=== PATIENT | female | born 1950 | race Caucasian/White ===

== ENCOUNTER → 2020-11-04 14:46 | Outpatient (POV) | payer MEDICARE, SELFPAY ==
[2020-11-04 16:10] VITALS: BP 120/71; PULSE 72; RESP 18; O2SAT 96; BMI 34.2
--- NOTE | 2020-11-04 16:40 | HMH.PMCON ---
Assessment and Plan (1) Right hip pain Status: Chronic Category: Medical Code(s): M25.551 - Pain in right hip (2) Low back pain Status: Chronic Category: Medical Code(s): M54.5 - Low back pain (3) Degenerative joint disease (DJD) of lumbar spine Status: Chronic Category: Medical Code(s): M47.816 - Spondylosis without myelopathy or radiculopathy, lumbar region (4) Lumbar radiculopathy Status: Chronic Category: Medical Code(s): M54.16 - Radiculopathy, lumbar region - Assessment and plan all Dx Assessment and Plan for all problems:: Patient was referred to us for possible work-up for intrathecal therapy. We did discuss her symptoms. She has undergone conservative therapies of physical therapy for more than 6 weeks and continued home stretching. She has also tried anti-inflammatories in the past along with continued home stretching and ice and heat therapies. Nothing has been beneficial for her pain at this time. She has been worked up by orthopedics providers as well as neurosurgeons. Patient says that she feels she is being disregarded and sent back and forth with no resolution. As result, she was referred to us. She is in pain management and does take oral medications. She understands she would need to wean on these medications before any type of trial for intrathecal therapy. We did discuss spinal cord stimulation which may also be an option for her, however, patient says she feels the pump would be a better option for her. Given she has tried and failed all other conservative therapies. We will send the patient back to Dr. Fernandes for psychological evaluation to see if she is an appropriate candidate for intrathecal therapy versus spinal cord stimulation. We will see her back after her trial to discuss a further plan of care. If she is considered an appropriate candidate. We will schedule her for a trial for possible intrathecal therapy. She is not on anticoagulation therapy. She is willing to hold her Gas[place] for the trial if she does have an appropriate psychological evaluation. Patient has been instructed to contact the clinic with any concerns before the next appointment. Dr. Silva has reviewed this note and agrees with this plan of care. This note was dictated using voice recognition software and make contain errors or omissions. HPI - Data of Consult Patient: new to practice Consult date: 11/04/20 Requesting Physician: Maria G Horner APRN Primary Care Provider: Referral Provider, MD - Consult Narrative Reason for consult: Low back pain, right hip pain History of present illness: Ms. Bennett is a 70 year old female who was referred to us today by [facility]. The patient is here today for complaints of chronic right hip pain. She has a history of right total hip arthroplasty. Patient says she has continued to have significant pain in her right hip and right lateral thigh since her surgery. She is seeing multiple orthopedic providers as well as neurosurgery. She has been worked up for both her low back pain as well as her hip pain. She is having low back pain that radiates into her mid back. She is having weakness in her lower extremities and is having pain that is excruciating when she is unable to stand or walk until she takes pain medication. She denies any recent injuries. She did undergo injective therapy to both her hip and her lumbar spine. She says that the lumbar epidural steroid injections did give her significant relief for short-term. She also reports that she had relief in her right lower extremity hip following the epidural steroid injections. Pain does return shortly after 3 days to a week. Says she is unsure if her pain is coming from her low back or her hip does not feel the medication is giving her significant relief. She was sent to us for possible work-up for intrathecal therapy. did recommend he has this well. She does see Dr. Fernandes for medicat
== END ==
PROVIDERS: Visit Provider Clinical Nurse Specialist Family Health
DX: M25.551 Pain in right hip (principal); M54.5 Low back pain; M47.896 Other spondylosis, lumbar region; M54.16 Radiculopathy, lumbar region
CPT/HCPCS: 99202; G0463

== ENCOUNTER 2020-12-24 08:07 | Day surgery (SDC) | payer MEDICARE, SELFPAY ==
[2020-12-24] VITALS (7 sets, daily range): BP systolic 112–151; BP diastolic 61–88; PULSE 69–83; RESP 18–20; TEMP 36.4; O2SAT 96–98; BMI 33.8
--- NOTE | 2020-12-24 09:44 | HMH.PMPROC ---
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 She has had 3 previous back surgeries. She is also had epidural steroid injections which have not lasted. She is also on hydrocodone and gabapentin which is giving her some pain relief however she still has significant pain. She has failed all previous conservative therapy. She has had a successful psychological evaluation. She presents for intrathecal pump trial today. Procedure Details:: Pain pump trial Informed consent was obtained and the risk and benefits of the procedure was explained to the patient. The patient was taken to the procedure room and placed prone on the procedure table. Patient was prepped and draped in sterile fashion. C-arm fluoroscopy was used to view the lumbar spine. The skin and subcutaneous tissues were anesthetized using lidocaine. I placed a 18-gauge spinal needle into the L4-5 interspace and advanced until clear CSF was obtained. After this intrathecal catheter was inserted and advanced very easily to the L1 vertebral body. The needle was withdrawn. We were able to freely withdraw clear CSF through the catheter. We then injected intrathecal fentanyl single shot bolus of 25 mcg followed by saline and followed by the previous CSF that was withdrawn. The needle and catheter were then removed and a Band-Aid was placed. Patient tolerated the procedure well with no complications. We reevaluated the patient after 30 minutes to 1 hour. She was also reassessed by physical therapy. Plan and Disposition:: Patient did very well she was 80 to 90% better. She did have some slight itching. She is much more functional. She was able to stand up straighter. We will plan on permanent placement of intrathecal pain pump on January 12. We will plan on intrathecal morphine 5 mg/mL to start at 0.25 mg/day. Catheter tip will be at the T12 vertebral body
--- NOTE | 2020-12-24 09:50 | PC.NURSE ---
0850-Physical therapist at bedside 0910-pt returned to bay, accompanied by nursing staff. VSS, rates pain 3 on scale of 0-10. dressing to low back c/d/i. pt given soda per requested. without any other needs or concerns at this time 0925-pt resting in chair. tolerating PO intake. VSS, rates pain 1 on scale 0-10. dressing to low back c/d/i. pt with out any needs or concerns at this time 0935-MD at bedside 0940-pt resting in chair. VSS, denies pain. dressing c/d/i. pt without any needs or concerns at this time. 0944-pt ambulated to nursing station with walker. gait steady. denies pain. requested benadryl for itching. 0950-pt medicated with benadryl per prn order. pt without any needs or concerns at this time.
--- NOTE | 2020-12-24 12:48 | PC.NURSE ---
1010-physical therapist at bedside 1016-VSS, pt denies pain. pt discharged.
== END 2020-12-24 10:20 | disposition home or self-care (01) ==
LOC: SC.PAINP 08:09
PROVIDERS: PCP Internal Medicine; Visit Provider Anesthesiology
DX: M96.1 Postlaminectomy syndrome, not elsewhere classified (principal); M54.16 Radiculopathy, lumbar region
CPT/HCPCS: 62350; 96365

== ENCOUNTER 2021-01-05 07:41 | Day surgery (SDC) | payer MEDICARE, SELFPAY ==
[2021-01-03 15:06] VITALS: BMI 34.7
[2021-01-05] VITALS (7 sets, daily range): BP systolic 101–149; BP diastolic 53–80; PULSE 67–87; RESP 18; TEMP 36.1–36.7; O2SAT 94–96
[2021-01-05 09:01] LABS: Basophils # 0.1 K/mm3 (0-0.2); Basophils % 1.1 % (0.1-2.0); Eosinophils # 0.2 K/mm3 (0.0-0.4); Eosinophils % 1.8 % (0.1-12.0); Hematocrit 49.6 % (37.0-47.0); Hemoglobin 15.8 g/dL (12.2-16.2); Lymphocytes # 1.8 K/mm3 (0.7-4.5); Lymphocytes % 19.9 % (10-50); Mean Corpuscular HGB Conc 31.8 g/dL (31.8-35.4); Mean Corpuscular Hemoglobin 28.7 pg (27.0-31.2); Mean Corpuscular Volume 90.3 fl (81-99); Mean Platelet Volume 8.6 fl (7.4-10.4); Monocytes # 0.5 K/mm3 (0.1-1.0); Monocytes % 5.6 % (1.7-9.3); Neutrophils # 6.3 K/mm3 (1.8-7.8); Neutrophils % 71.5 % (37.0-80.0); Platelet Count 178 K/mm3 (142-424); Red Cell Distribution Width 14.2 % (11.5-17.5); White Blood Count 8.8 K/mm3 (4.8-10.8)
[2021-01-05 09:04] LABS: Anion Gap 18.5 mEq/L (5-15); Blood Urea Nitrogen 19 mg/dl (7-17); Calcium 9.9 mg/dl (8.4-10.2); Carbon Dioxide 27 mmol/L (22.0-30.0); Chloride 101 mmol/L (98-107); Creatinine Clearance Estimated 71 mL/min (50-200); Estimated Glomerular Filt Rate 62 ml/min (>60); GFR (African American) 75 ML/MIN (>60); Glucose 136 mg/dl (74-100); Potassium 4.5 mmoL/L (3.5-5.1); Sodium 142 mmol/L (136-145)
[2021-01-05 09:23] LABS: Amphetamine/Metha Screen,Urine Negative ng/ml (<1000)
[2021-01-05 09:24] LABS: Barbiturates Screen,Urine Negative ng/ml (<200); Benzodiazepines Screen,Urine Negative ng/ml (<200)
[2021-01-05 09:25] LABS: Cannabinoid Screen,Urine Negative ng/ml (<50); Cocaine Screen,Urine Negative ng/ml (<300)
[2021-01-05 09:26] LABS: Methadone Screen,Urine Negative ng/ml (<300)
[2021-01-05 09:27] LABS: Phencyclidine Screen,Urine Negative ng/ml (<25)
[2021-01-05 10:06] LABS: Opiate Screen,Urine Positive ng/ml (<300)
--- NOTE | 2021-01-05 10:23 | HMH.ANESCL ---
[facility] Anesthesia Checklist - Patient Identification Patient Identification: Arm Band, Verbal (Name & ) - Structural Data Admitted From: Home Planned Operative Procedure/s: pain pump Consent for Planned Operative Procedure(s) Verified: Yes Verified Documents: History and Physical - NPO Status Verified Time NPO: 00:00 - Additional verifications Patient : No Anesthesia Reactions: Yes (drowsiness) Hx Blood Transfusions: No Blood Transfusion Reaction: No Cephalosporin Allergy: No Previous Colonoscopy: No - Cardiovascular Assessment Heart Sounds: S1 & S2 Pulse Strength: Baseline Pulse Rhythm: Regular Peripheral Edema: No - Airway Assessment C-Spine Mobility Assessed: Yes TMJ Mobility Assessed: Yes Dentition: Good Dentition - Neurological Assessment Level of Consciousness: Awake, Alert, Appropriate Hx Seizures: No Numbness or tingling in extremities: No - Anesthesia Plan Anesthesia Risk discussed: Yes Anesthesia Plan: Verified ASA Class: III Anesthesia Type: MAC [facility] History I have reviewed the patient's past medical history: Yes Medical History: Reports:: Diabetes Mellitus Type 2, Hyperlipidemia, Hypertension Denies:: Cancer, Diabetes Mellitus Type 1, Internal Pacemaker, MRSA, Seizures *Have you ever received a pneumonia vaccine?: Yes *Have you received a flu vaccine this season?: Yes (2019) Other Medical History: Reports: Arthritis, Hypothyroidism. Denies: Blood Transfusion Reaction Anesthesia experience/problems:: none Laterality Cases: Right: Other, Bilateral: Tonsillectomy, Total Hip Replacement Other Surgeries: Yes: Appendectomy, Hysterectomy-Total, Thyroidectomy (partial), Other. No: Pacemaker Amputation: No Fractures: Yes (right arm fx with surgical repair. Tib fib fx with surgical repair) - *Social History Last grade of school completed: Advanced degree Smoking Status: Never smoker Alcohol Intake: never Substance Use Type: other *Occupational Status:: unemployed Housing: house Household Members: none *Travel in the last 8 weeks: None Family Hx:: No significant family history
--- NOTE | 2021-01-05 10:46 | P.OP_ITS ---
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 She is failed all previous conservative therapy including injections, oral medications, previous back surgery and physical therapy. She is not a candidate for any further surgery. She has had a successful psychological evaluation and a successful intrathecal pump trial. She presents for permanent placement of her intrathecal pain pump today. Operative findings:: None Operative note:: Informed consent was obtained the risk and benefits of the procedure were explained to the patient. Patient was taken the operating room placed prone on the procedure table. She was prepped and draped in sterile fashion. C-arm fluoroscopy was used to view the lumbar spine. The skin and subtenons tissues were anesthetized using lidocaine. I made incision and dissected down to the lumbar paraspinous fascia. A 15-gauge spinal needle was inserted and advanced into the L4-5 interspace until clear CSF was obtained. After this intrathecal catheter was inserted and advanced very easily to the L1 vertebral body. The stylette of the catheter and the needle were withdrawn. The catheter secured to the fascia with 2 anchoring devices and 2-0 Prolene. I prepared the pump with 20 mL of intrathecal morphine 5 mg/mL while Dr. Polanco more prepared the pump pocket. I tunneled the catheter from the back to the pump pocket and attached catheter to the pump. We were able to freely withdraw clear CSF through the side-port. Both incisions were irrigated with antibiotic solution. Both incisions were then closed with 2-0 Vicryl followed by 4-0 nylon. A wound VAC was placed over the incisions. The patient was placed in an abdominal binder. Patient was taken recovery in stable condition. Patient tolerated the procedure well with no complications. Patient was discharged home neurologically intact with good relief of pain symptoms. Condition: stable Disposition: PACU Complications:: none
--- NOTE | 2021-01-05 11:46 | HMH.OPNOTE ---
Date of procedure: 01/05/21 Pre-op Diagnosis:: Degenerative disc disease of the lumbar spine with radiculopathy Post-op Diagnosis:: Same Procedure performed:: Placement of right pain pump generator Surgeon:: Panchito Ramirez MD ANIMAL LABORATORY HELPER:: Jarad Kovacs, Terrence Coles, Nick Sánchez, Miguelito Hayes, Jean Pavon, Wallace Goldstein, Other Anesthesia: MAC Estimated blood loss (mL): 5 Operative findings:: Not applicable Operative note:: Once adequate IV sedation was obtained by anesthesia the patient was placed prone on the operating table and her back and flank regions were prepped and draped in sterile fashion. Paraspinal incision was made by Dr. Silva to which an intrathecal catheter was passed into the intrathecal space to the area desired by Dr. Silva. A right flank incision was then made in which made a pocket for placement of the generator. Both pockets irrigated with antibiotic solution. Utilizing the tunneling device the catheter was passed in the paraspinal incision in the pocket incision. Catheter connected the generator placed in the pocket. CSF was aspirated from the generator noting patency of the system. Subcutaneous tissues closed with 2-0 Vicryl. Skin closed arm stitches of 4-0 nylon. Wound VAC dressing and binder applied to the wound. Patient Toller procedure well and was taken to recovery in stable condition. Upon recovery patient will be discharged home will follow-up 1 week for removal of the wound VAC system in 2 weeks removal of sutures. Antibiotics x1 week per protocol. The patient tolerated the procedure well Condition: stable Disposition: PACU Complications:: None
[2021-01-06 07:48] LABS: POC Glucose,Bedside 128 (70-110)
== END 2021-01-05 13:30 | disposition home or self-care (01) ==
LOC: OR 07:44
PROVIDERS: PCP Internal Medicine; Visit Provider Anesthesiology
DX: M96.1 Postlaminectomy syndrome, not elsewhere classified (principal); M54.16 Radiculopathy, lumbar region; E11.9 Type 2 diabetes mellitus without complications; E78.5 Hyperlipidemia, unspecified; I10 Essential (primary) hypertension; Z79.899 Other long term (current) drug therapy
CPT/HCPCS: 62350; 62362; 80048; 80305; 82962; 85025; 96374; C1755; C1772; J3370

== ENCOUNTER → 2021-01-11 09:52 | Outpatient (POV) | payer MEDICARE, SELFPAY ==
[2021-01-11 10:30] VITALS: BP 156/87; PULSE 78; RESP 18; O2SAT 98; BMI 33.8
--- NOTE | 2021-01-11 11:07 | P.PCN_ITS ---
- Procedure Date: 01/11/21 Time: 11:07 Anesthesiologist:: Maria G Horner APRN Complications:: None Pre-procedure Diagnosis:: Degenerative disc disease lumbar spine with lumbar radiculopathy symptoms, postlaminectomy syndrome lumbar spine Post-procedure Diagnosis:: same Indications for Procedure:: Patient is a pleasant 70-year-old white female who presents today for follow-up after intrathecal pain pump placement. She is being treated for degenerative disc disease lumbar spine with lumbar radiculopathy symptoms and postlaminectomy syndrome lumbar spine. Patient did have her intrathecal pump placed on 01/05/2021. She is here today to have her wound VAC removed and assessment of incision site. Patient says that she is getting relief, however, has had itching around her pump site. She is unsure if it is related to the wound VAC or the medication. She does rate her pain a 5 out of 10. She is continued to have some pain in her low back area. She would like an increase today. She is currently on morphine at 0.25 mg/day. Patient's Nasim and drug screen are appropriate. 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 Patient was taken to the procedure room where noninvasive monitoring was placed including noninvasive blood pressure cuff and pulse oximeter. Patient's pump was interrogated and was reprogrammed to morphine at 0.28 mg/day. The patient tolerated the procedure well with no complications. Plan and Disposition:: Patient and I did discuss her symptoms today. She appears to have a rash around the area of the wound VAC. She has been taking Benadryl. I have advised the patient to stop with Benadryl at this time by mouth. she will attempt to use Benadryl topical to the skin surrounding the incision, where wound VAC was originally placed. She does have redness at the tape site from the wound VAC. The patient's incision is well approximated, without drainage or edema. Patient has been afebril Patient has been advised if pruritis worsens, we will need to decrease her intrathecal medication in place new medication in the pump. We will put her down for 2-week follow-up, however, if her itching worsens she will return to the clinic this week. We will see the patient back in the clinic at the next intrathecal refill. Patient has been instructed to contact the clinic with any concerns before the next appointment. Dr. Silva has reviewed this note and agrees with this plan of care. This note was dictated using voice recognition software and make contain errors or omissions.
== END ==
PROVIDERS: Visit Provider Clinical Nurse Specialist Family Health
DX: M51.16 Intervertebral disc disorders with radiculopathy, lumbar region (principal); M96.1 Postlaminectomy syndrome, not elsewhere classified
CPT/HCPCS: 62368

== ENCOUNTER → 2021-01-21 10:55 | Outpatient (POV) | payer MEDICARE, SELFPAY ==
[2021-01-21 11:20] VITALS: BP 138/78; PULSE 91; RESP 20; O2SAT 95; BMI 34.7
--- NOTE | 2021-01-21 11:28 | HMH.PMPROC ---
- Procedure Date: 01/21/21 Time: 11:28 Anesthesiologist:: Jordan Silva MD Complications:: None Pre-procedure Diagnosis:: Degenerative disc disease of lumbar spine with lumbar radiculopathy symptoms Post-procedure Diagnosis:: Same Indications for Procedure:: The patient is a pleasant 70-year-old white female who we are treating for low back pain with lumbar radiculopathy symptoms. She does have increasing pain in her back and down her legs. She has noted some itching below her binder. We will make adjustments to her intrathecal infusion and increase her to 0.35 mg/day. I did tell her to wear a T-shirt underneath her binder to help with her itching which seems to be due to a contact dermatitis. Procedure Details:: Analysis and reprogram of intrathecal pain pump Informed consent was obtained the risk and benefits of the procedure were explained to the patient. Patient was taken the procedure room. Pump was interrogated. Intrathecal morphine infusion was increased to 0.35 mg/day. Patient tolerated procedure well with no complications. Plan and Disposition:: We will follow-up with this patient in 2 weeks. We will remove her stitches at that time. Her incisions are healing very nicely. We will make further adjustments to her intrathecal infusion. Also I did tell her to wear a T-shirt underneath her binder to help with the itching.
== END ==
PROVIDERS: PCP Internal Medicine; Visit Provider Anesthesiology
DX: M51.16 Intervertebral disc disorders with radiculopathy, lumbar region (principal); Z45.1 Encounter for adjustment and management of infusion pump
CPT/HCPCS: 62368

== ENCOUNTER → 2021-01-25 11:04 | Outpatient (POV) | payer MEDICARE, SELFPAY ==
[2021-01-25 11:27] VITALS: BP 125/70; PULSE 72; RESP 18; O2SAT 98; BMI 34.7
--- NOTE | 2021-01-25 11:41 | HMH.PMPROC ---
- Procedure Date: 01/25/21 Time: 11:42 Anesthesiologist:: Maria G Horner APRN Complications:: None Pre-procedure Diagnosis:: Degenerative disc disease lumbar spine with lumbar radiculopathy symptoms, postlaminectomy syndrome lumbar spine Post-procedure Diagnosis:: Same Indications for Procedure:: Patient is a pleasant 70-year-old white female who presents today for intrathecal pain pump adjustment. Patient was increased on Sunday with Dr. Silva. She was increased from 0.28 mg/day to 0.35 mg/day. She is feeling much better but continues to have pain in her bilateral lower extremities. She would like a small increase today. Patient was previously managed with gabapentin 600 mg 1 tablet p.o. [address] Henderson. She was also prescribed [place] 10 mg 1 tablet p.o. 3 times daily on 12/28/2020. She has been advised to stop taking [place] as this does place the patient at a very high risk for oversedation. She is in agreement. We will resume the patient's gabapentin. We will increase her today to see if she gets relief. The patient's Nasim #[id number] has been reviewed and is appropriate. Drug screens have been appropriate. Morphine equivalent is 30. Patient is continuing to wear both abdominal binder and the back brace post surgery. Sutures will be removed today. She is still having some occasional itching around the incision site, however, she is using Benadryl cream as needed. Physical exam General: Alert and oriented x3, no acute distress, pleasant and cooperative, [on room air] Lungs: Respirations even and unlabored, symmetrical chest expansion Eyes: PERRL Musculoskeletal: Flexion and extension of lumbar [spine] somewhat guarded secondary to pain, strength in upper and lower extremities [5/5], [antalgic gait noted] Neurological: Speech clear, [battery hand equal], no gross sensory deficit Integumentary: Incision well approximated, no redness, no drainage, no edema to site. Sutures removed. Procedure Details:: Informed consent was obtained and the risk and benefits of the procedure were explained to the patient. Patient was taken to the procedure room where noninvasive monitoring was placed including noninvasive blood pressure cuff and pulse oximeter. Patient's pump was interrogated and was reprogrammed to morphine at 0.39 mg/day. The patient tolerated the procedure well with no complications. Plan and Disposition:: We will order the patient Zofran 4 mg 1 tablet p.o. 3 times daily as needed for nausea. We will also continue the patient's gabapentin 600 mg 1 tablet p.o. 4 times daily. We will see the patient back in 2 weeks for reevaluation of symptoms. Sutures were removed today. She has been advised to continue wearing abdominal binder. She has also been advised to stop taking [place], and is in agreement. Risks and benefits of the medication have been explained in detail to the patient. The patient has been advised to consult with his/her primary care provider and pharmacist regarding drug-drug interaction of medications currently prescribed. Patient has been prescribed a controlled substance after being counseled on the medication, medication safety, and possible side effects. NASIM report has been obtained and reviewed prior to prescription and found to be appropriate. Opioid contract was reviewed and signed by the patient, and that they have agreed to all of the terms set forth by our compliance program. Patient has been instructed to contact the clinic with any concerns before the next appointment. Dr. Silva has reviewed this note and agrees with this plan of care. This note was dictated using voice recognition software and make contain errors or omissions.
== END ==
PROVIDERS: Visit Provider Clinical Nurse Specialist Family Health
DX: M51.16 Intervertebral disc disorders with radiculopathy, lumbar region (principal); M96.1 Postlaminectomy syndrome, not elsewhere classified; Z45.1 Encounter for adjustment and management of infusion pump
CPT/HCPCS: 62368

== ENCOUNTER → 2021-02-14 14:24 | Outpatient (POV) | payer MEDICARE, SELFPAY ==
[2021-02-14 14:46] VITALS: BP 110/77; PULSE 90; RESP 18; O2SAT 95; BMI 32.9
--- NOTE | 2021-02-14 14:52 | HMH.PMPROC ---
- Procedure Date: 02/14/21 Time: 14:52 Anesthesiologist:: Maria G Horner APRN Complications:: None Pre-procedure Diagnosis:: Degenerative disc disease lumbar spine with lumbar radiculopathy symptoms Post-procedure Diagnosis:: Same Indications for Procedure:: Patient is a pleasant 70-year-old white female who presents today for intrathecal pain pump adjustment. She is being treated for degenerative disc disease lumbar spine with lumbar radiculopathy symptoms. Patient would like an increase today. She is having pain to her right lateral thigh area. She rates her pain a 5 out of 10. She is continuing to wear her abdominal binder. Patient is also managed with gabapentin 600 mg 1 tablet p.o. 4 times daily. She does need a refill on this today. Patient has been advised to discontinue her [place]. She is in agreement. This was last filled on 01/25/2021. She is reporting her pruritus to have subsided. Physical exam General: Alert and oriented x3, no acute distress, pleasant and cooperative Lungs: Respirations even and unlabored, symmetrical chest expansion Eyes: PERRL Musculoskeletal: Flexion and extension of lumbar [spine] somewhat guarded secondary to pain, [antalgic gait noted] Neurological: Speech clear, no gross sensory deficit Procedure Details:: Informed consent was obtained and the risk and benefits of the procedure were explained to the patient. Patient was taken to the procedure room where noninvasive monitoring was placed including noninvasive blood pressure cuff and pulse oximeter. Patient's pump was interrogated and was reprogrammed to increase to morphine at 0.43 mg/day.. The patient tolerated the procedure well with no complications. Plan and Disposition:: We will continue the patient's gabapentin 600 mg 1 tablet p.o. 4 times daily. She was informed that her last visit to stop use of [place] with her intrathecal therapy. She was in agreement. It was last filled on 01/25/2021 per her Nasim report. We will see the patient back in 2 weeks for further adjustments if needed. Risks and benefits of the medication have been explained in detail to the patient. If side effects do present with the medication, patient has been advised to stop the medication immediately and call the clinic. The patient has been advised to consult with his/her primary care provider and pharmacist regarding drug-drug interaction of medications currently prescribed. Risks and benefits of the medication have been explained in detail to the patient. The patient does understand the risk of dependence on the medication when given over a prolonged period. Patient has been advised of risks of oversedation with the prescribed medication. Narcan has been offered to the paitent in the event of oversedation. Patient has been advised that a family member should also be educated regarding administration of Narcan. The patient has been advised to consult with his/her primary care provider and pharmacist regarding drug-drug interaction of medications currently prescribed. Patient has been prescribed a controlled substance after being counseled on the medication, medication safety, and possible side effects. NASIM report has been obtained and reviewed prior to prescription and found to be appropriate. Opioid contract was reviewed and signed by the patient, and that they have agreed to all of the terms set forth by our compliance program. Patient has been instructed to contact the clinic with any concerns before the next appointment. Dr. Silva has reviewed this note and agrees with this plan of care. This note was dictated using voice recognition software and make contain errors or omissions.
== END ==
PROVIDERS: Visit Provider Clinical Nurse Specialist Family Health
DX: M51.16 Intervertebral disc disorders with radiculopathy, lumbar region (principal); Z45.1 Encounter for adjustment and management of infusion pump
CPT/HCPCS: 62368

== ENCOUNTER → 2021-02-28 11:38 | Outpatient (POV) | payer MEDICARE, SELFPAY ==
[2021-02-28 12:02] VITALS: BP 119/70; PULSE 86; RESP 18; O2SAT 96; BMI 32.9
--- NOTE | 2021-02-28 12:26 | HMH.PMPROC ---
- Procedure Date: 02/28/21 Time: 12:26 Anesthesiologist:: Maria G Horner APRN Complications:: None Pre-procedure Diagnosis:: Degenerative disc disease lumbar spine with lumbar radiculopathy symptoms Post-procedure Diagnosis:: Same Indications for Procedure:: Patient is a 70-year-old white female who presents today for intrathecal pain pump adjustment. She is being managed for low back pain with lumbar radicular symptoms lower extremities. Patient rates her pain a 3 out of 10 with sitting and at 5 or 6 out of 10 with standing and walking. She says her pain is well controlled with sitting and without movement. When she does any activity, the pain does increase to the low back area. She is continuing to wear her abdominal binder. She would like an increase today. The patient initially had pruritus immediately after implant. This has subsided. We currently have the patient on morphine at 0.43 mg/day. She is also managed with gabapentin 600 mg 1 tablet p.o. 4 times daily. She was previously taking Martha 10 mg 1 tablet p.o. [address] Henderson. She is no longer taking this medication. Physical exam General: Alert and oriented x3, no acute distress, pleasant and cooperative Lungs: Respirations even and unlabored, symmetrical chest expansion Eyes: PERRL Musculoskeletal: Flexion and extension of lumbar [spine] somewhat guarded secondary to pain, [antalgic gait noted] Neurological: Speech clear, no gross sensory deficit Procedure Details:: Informed consent was obtained and the risk and benefits of the procedure were explained to the patient. Patient was taken to the procedure room where noninvasive monitoring was placed including noninvasive blood pressure cuff and pulse oximeter. Patient's pump was interrogated and was reprogrammed to morphine at 0.5 mg/day, PTC started at 0.05 mg up to 4 times daily.. The patient tolerated the procedure well with no complications. Plan and Disposition:: We will plan to see the patient back the first week of March for medication change out. She will continue with her gabapentin. She does not need refills at this time. Risks and benefits of the medication have been explained in detail to the patient. If side effects do present with the medication, patient has been advised to stop the medication immediately and call the clinic. The patient has been advised to consult with his/her primary care provider and pharmacist regarding drug-drug interaction of medications currently prescribed. Patient has been instructed to contact the clinic with any concerns before the next appointment. Dr. Silva has reviewed this note and agrees with this plan of care. This note was dictated using voice recognition software and make contain errors or omissions.
== END ==
PROVIDERS: Visit Provider Clinical Nurse Specialist Family Health
DX: M51.16 Intervertebral disc disorders with radiculopathy, lumbar region (principal); Z45.1 Encounter for adjustment and management of infusion pump
CPT/HCPCS: 62368; 62370; 99212; G0463

== ENCOUNTER 2021-05-16 13:00 | Day surgery (SDC) | payer MEDICARE, SELFPAY ==
[2021-05-16 13:12] VITALS: BP 120/69; BP 144/75; PULSE 61; PULSE 79; RESP 18; RESP 20; TEMP 36.4; O2SAT 94; O2SAT 96; BMI 31.1
[2021-05-16 13:27] VITALS: BP 129/84; PULSE 67; RESP 18; O2SAT 95
[2021-05-16 13:28] VITALS: PULSE 83; RESP 18; O2SAT 95
--- NOTE | 2021-05-16 13:34 | HMH.PMPROC ---
- Procedure Date: 05/16/21 Time: 13:34 Anesthesiologist:: Maria G Horner APRN Complications:: None Pre-procedure Diagnosis:: Degenerative disc disease lumbar spine with lumbar radiculopathy symptoms Post-procedure Diagnosis:: Same Indications for Procedure:: Patient is a 70-year-old white female who presents today for intrathecal pain pump refill and reprogram. She is being treated for chronic low back pain. She is getting significant relief with her intrathecal therapy. She is on morphine at 0.5 mg/day. She would like an increase. She says she does continue to have some low back pain. She rates her pain a 6 out of 10. Nasim injection are appropriate. We will increase her today. She does also get gabapentin prescribed by our clinic. We have prescribed gabapentin 610 mg 1 tablet p.o. 4 times daily. Nasim #[id number] has been reviewed and is appropriate. Dextran is appropriate. Physical exam General: Alert and oriented x3, no acute distress, pleasant and cooperative Lungs: Respirations even and unlabored, symmetrical chest expansion Eyes: PERRL Musculoskeletal: Flexion and extension of lumbar [spine] somewhat guarded secondary to pain, [antalgic gait noted] Neurological: Speech clear, no gross sensory deficit Procedure Details:: Informed consent was obtained and the risk and benefits of the procedure were explained to the patient. The patient was taken to the procedure room where noninvasive monitoring was placed including noninvasive blood pressure cuff and pulse oximeter. Patient's pump was interrogated. The area over the pump was cleansed with chlorhexidine as a cleansing solution. In sterile fashion the pump was accessed with a 22-gauge needle. Approximately 8 mls of the pump solution was removed and discarded appropriately. The pump was then refilled with 20 mL's of morphine 5 mg/mL. The needle was withdrawn and a bandage was placed over the puncture site. The infusion rate was reprogrammed at morphine at 0.55 mg/day. The patient tolerated well with no complication. Plan and Disposition:: We will continue patient's gabapentin 600 mg 1 tablet p.o. 4 times daily. She will get 3 months of medication. She has been advised that medications given in conjunction with intrathecal therapy can cause high risk of oversedation. She has been advised to use caution. We will see the patient back in the clinic at the next intrathecal refill. Patient has been instructed to contact the clinic with any concerns before the next appointment. Dr. Silva has reviewed this note and agrees with this plan of care. This note was dictated using voice recognition software and make contain errors or omissions.
[2021-05-16 14:58] LABS: Amphetamine/Metha Screen,Urine Negative ng/ml (<1000); Barbiturates Screen,Urine Negative ng/ml (<200)
[2021-05-16 14:59] LABS: Benzodiazepines Screen,Urine Negative ng/ml (<200); Cannabinoid Screen,Urine Negative ng/ml (<50)
[2021-05-16 15:00] LABS: Cocaine Screen,Urine Negative ng/ml (<300)
[2021-05-16 15:01] LABS: Methadone Screen,Urine Negative ng/ml (<300); Opiate Screen,Urine Positive ng/ml (<300)
[2021-05-16 15:02] LABS: Phencyclidine Screen,Urine Negative ng/ml (<25)
[2021-05-30 23:16] LABS: Codeine Negative (Cutoff=100); Hydrocodone Negative (Cutoff=100); Hydromorphone Negative (Cutoff=100); Morphine Positive (.); Opiates Positive (.)
== END 2021-05-16 13:33 | disposition home or self-care (01) ==
LOC: SC.PAINP 13:02
PROVIDERS: PCP Internal Medicine; Visit Provider Clinical Nurse Specialist Family Health
DX: M51.16 Intervertebral disc disorders with radiculopathy, lumbar region (principal); Z45.1 Encounter for adjustment and management of infusion pump; Z79.891 Long term (current) use of opiate analgesic
CPT/HCPCS: 62370; 80305; 80361; 80365; G0480

== ENCOUNTER → 2021-09-30 13:59 | Outpatient (POV) | payer MEDICARE, SELFPAY ==
[2021-09-30 14:11] VITALS: BP 133/72; PULSE 77; RESP 20; TEMP 36.6; O2SAT 92; BMI 30.9
--- NOTE | 2021-09-30 14:46 | HMH.PAINSOAP ---
[facility] Pain Management SOAP Note Subjective:: Patient is a very pleasant 70-year-old female who comes our clinic today for follow-up visit regarding increased pain in the lower extremities. The patient describes the pain as the feeling of walking on the rocks. She states no pain in the low back to speak of. However, just lower leg pain. She currently is being managed with intrathecal pain pump 5 mg morphine at 0.55 mg/day. We will increase her 10% to current rate now of 0.6 mg/day. Patient does have the option of PTC. She is using 1 to 2/day. Objective:: Patient is awake alert [place] x3. In no acute distress. Flexion and extension lumbar spine normal. Deep tendon reflexes upper and lower extremities normal. Motor strength upper and lower extremities normal. There is no gross sensory deficit. Patient does use a walker at times for stability while ambulating any distance. Assessment:: Degenerative disc disease lumbar spine multilevels. Lumbar radiculopathy symptoms. Plan:: Patient returns clinic in 1 month for follow-up. Otherwise, I instructed the patient to call us if she has any further difficulty. Again, patient's pump was increased 10% to 0.6 mg/day. [facility] History Medical History: Reports:: Diabetes Mellitus Type 2, Hyperlipidemia, Hypertension Denies:: Cancer, Diabetes Mellitus Type 1, Internal Pacemaker, MRSA, Seizures *Have you ever received a pneumonia vaccine?: Yes *Have you received a flu vaccine this season?: Yes Other Medical History: Reports: Arthritis, Hypothyroidism. Denies: Blood Transfusion Reaction Laterality Cases: Right: Other, Bilateral: Tonsillectomy, Total Hip Replacement Other Surgeries: Yes: Appendectomy, Hysterectomy-Total, Thyroidectomy (partial), Other. No: Pacemaker Amputation: No Fractures: Yes (right arm fx with surgical repair. Tib fib fx with surgical repair) - *Social History Smoking Status: Never smoker Alcohol Intake: never Substance Use Type: other *Occupational Status:: other Housing: house Household Members: none *Travel in the last 8 weeks: None Family Hx:: Other
--- NOTE | 2021-10-04 07:28 | P.PCN_ITS ---
- Procedure Date: 09/30/21 Time: 14:45 Anesthesiologist:: Brennon Gamboa CRNA Complications:: None Pre-procedure Diagnosis:: Degenerative disc disease lumbar multilevels. Lumbar radiculopathy symptoms Post-procedure Diagnosis:: Same Indications for Procedure:: Patient is a very pleasant 78-year-old female who comes our clinic today for follow-up visit regarding increased pain in her lower extremities. Patient describes the pain as a feeling of walking on the rocks. She states no pain in the low back to speak of. However just lower leg pain. She is currently being managed with intrathecal pain pump 5 mg morphine at 0.55 mg/day. She denies any side effects from the medication. [facility] does have PTC device set up and is using it 1-2 times a day. Patient is requesting an increase in her constant flow daily dose. Procedure Details:: Informed consent was obtained and the risks and benefits of the procedure were explained to the patient. Patient's intrathecal pain pump was interrogated and dose increased by 10% to current rate of now 0.6 mg/day. No changes made to PTC dosing. Plan and Disposition:: Patient will return to the clinic in 1 month for follow-up. Otherwise instructed the patient to call if she has any further difficulty and or side effects from medication.
== END ==
PROVIDERS: PCP Internal Medicine; Visit Provider Nurse Anesthetist, Certified Registered
DX: M51.16 Intervertebral disc disorders with radiculopathy, lumbar region (principal); M79.662 Pain in left lower leg; M79.661 Pain in right lower leg
CPT/HCPCS: 62368; 99212; G0463

== ENCOUNTER → 2021-10-31 10:50 | Outpatient (POV) | payer MEDICARE, SELFPAY ==
--- NOTE | 2021-10-31 11:25 | HMH.PMPROC ---
- Procedure Date: 10/31/21 Time: 11:25 Anesthesiologist:: GRACE Gordon Complications:: None Pre-procedure Diagnosis:: Degenerative disease of lumbar spine with lumbar radiculopathy symptoms, osteoarthritis of bilateral knees, bilateral shoulders, bilateral hips Post-procedure Diagnosis:: Same Indications for Procedure:: Patient is a pleasant 71-year-old female who presents today for intrathecal pain pump adjustment. The patient is being treated for degenerative disc disease of lumbar spine with lumbar radiculopathy symptoms, osteoarthritis of bilateral hips, knees, shoulders. Patient is currently being managed with morphine 5 mg/mL at a rate of 0.6 mg/day. Patient is a home refill with [facility]. We will adjust her intrathecal pain pump today. Patient denies any side effects from this medication. Patient is also prescribed gabapentin 600 mg 4 times a day. She is needing refills on this medication. Patient rates pain a 8 out of 10. Drug screen is appropriate. Nasim [id number] has been reviewed and is appropriate. She also presents today with worsening bilateral knee pain, left is worse than the right. 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 She is not interested in any injective therapy at this time. Physical exam General: Alert and oriented x3, no acute distress, pleasant and cooperative Lungs: Respirations even and unlabored, symmetrical chest expansion Eyes: PERRL Musculoskeletal: Flexion and extension of low back pain, shoulder pain, knee pain [spine] somewhat guarded secondary to pain, [antalgic gait noted] Neurological: Speech clear, no gross sensory deficit Procedure Details:: Informed consent was obtained and the risk and benefits of the procedure were explained to the patient. Patient was taken to the procedure room where noninvasive monitoring was placed including noninvasive blood pressure cuff and pulse oximeter. Patient's pump was interrogated and was reprogrammed to morphine 0.72 mg/day. The patient tolerated the procedure well with no complications. Plan and Disposition:: We will continue the patient's gabapentin 600 mg 4 times a day. We will provide the patient with 3 months worth of refill. We will follow-up with this patient in 3 months. Patient also wants to increase her PTC device. We will reach out to her home refill nurse to increase her device. Patient has been instructed to contact the clinic with any concerns before the next appointment. Dr. Silva has reviewed this note and agrees with this plan of care. This note was dictated using voice recognition software and make contain errors or omissions.
[2021-10-31 12:56] VITALS: BP 114/63; PULSE 90; RESP 20; TEMP 36.6; O2SAT 96; BMI 31.1
== END ==
PROVIDERS: Visit Provider Student in an Organized Health Care Education/Training Program
DX: M51.16 Intervertebral disc disorders with radiculopathy, lumbar region (principal); M16.0 Bilateral primary osteoarthritis of hip; M17.0 Bilateral primary osteoarthritis of knee; M19.012 Primary osteoarthritis, left shoulder; M19.011 Primary osteoarthritis, right shoulder
CPT/HCPCS: 99212; G0463

== ENCOUNTER → 2022-01-30 11:06 | Outpatient (POV) | payer MEDICARE, SELFPAY ==
[2022-01-30 11:20] VITALS: BP 142/74; PULSE 73; RESP 18; TEMP 36.7; O2SAT 92; BMI 32.3
--- NOTE | 2022-01-30 12:38 | A.OFFVIS_ITS ---
[facility] Pain Management SOAP Note Subjective:: Patient is a pleasant 71-year-old female who presents today for follow-up. Patient is currently treated for degenerative disc disease of lumbar spine with lumbar radiculopathy symptoms, osteoarthritis of bilateral knees, shoulders, hips. Patient is currently being managed with an intrathecal pain pump morphine 5 mg/mL at a rate of 0.72 mg/day. She also has her PTC device set up to provide morphine 0.055 mg up to 4 times a day. She is a home refill with [facility]. Today, patient is complaining of worsening bilateral feet pain. She cannot tolerate any prolonged standing and walking. She feels like there is something heavy on the dorsal aspect of her feet. Her toes are constantly achy. She rates her pain as 5 out of 10. She is prescribed gabapentin 600 mg 4 times a day. Denies any side effects from this medication. She is needing refills on this medication. When asked if she wants an adjustment on her pump, she states that she does not feel like it will help her bilateral feet pain. Her intrathecal pain pump does help a lot with her low back pain. She also uses Aspercreme but this is providing minimal relief. Nasim [id number] with an active morphine equivalent of 0. Review of Systems: General: No recent weight changes, no fever, no sleep disturbances Respiratory: No cough, no shortness of air, no recurring pulmonary infections Cardiovascular/peripheral vascular: No chest pain, no palpitations, no edema, no shortness of breath Gastrointestinal: No new onset incontinence, normal bowel movements reported Genitourinary: No new onset incontinence Musculoskeletal: Low back pain, bilateral feet pain Psychiatric: [Normal mood/affect] Neurological: [Denies weakness in extremities], [denies balance issues] Objective:: Physical Exam: General: Alert and oriented x3, no acute distress, pleasant and cooperative Lungs: Respirations even and unlabored, symmetrical chest expansion Eyes: PERRL Musculoskeletal: Flexion and extension of lumbar [spine] somewhat guarded secondary to pain, [antalgic gait noted] Neurological: Speech clear, no gross sensory deficit Assessment:: Degenerative disc disease of the lumbar spine with lumbar radiculopathy symptoms, osteoarthritis of bilateral knees, shoulders, hips Plan:: I will schedule this patient for a lumbar epidural steroid injection at L4-L5. Patient is not on any blood thinners. Her A1c is at 6.2. I will continue the patient's gabapentin 600 mg 4 times a day and provided patient with 3 months worth of refill. I do recommend that the patient try capsaicin cream to help with some of her neuropathic pains Patient has been instructed to contact the clinic with any concerns before the next appointment. Dr. Silva has reviewed this note and agrees with this plan of care. This note was dictated using voice recognition software and make contain errors or omissions. PFSH PFSH Social History Smoking Status: Never smoker alcohol intake: never substance use type: other current occupational status: retired Travel in the last 8 weeks: None household members: none housing: house caffeine: No
== END ==
PROVIDERS: Visit Provider Student in an Organized Health Care Education/Training Program
DX: M51.16 Intervertebral disc disorders with radiculopathy, lumbar region (principal); M17.0 Bilateral primary osteoarthritis of knee; M19.011 Primary osteoarthritis, right shoulder; M19.012 Primary osteoarthritis, left shoulder; M16.11 Unilateral primary osteoarthritis, right hip; M16.12 Unilateral primary osteoarthritis, left hip
CPT/HCPCS: 99212; G0463

== ENCOUNTER → 2022-02-27 11:19 | Outpatient (POV) | payer MEDICARE, SELFPAY ==
[2022-02-27 12:10] VITALS: BP 148/66; PULSE 71; RESP 18; O2SAT 92; BMI 32.9
--- NOTE | 2022-02-27 12:17 | EXP.PAIN.SOA ---
[facility] Pain Management SOAP Note Subjective:: Patient is a pleasant 71-year-old female who presents today for follow-up of insurance denial to a lumbar epidural steroid injection at L4-L5. We are currently treating the patient for degenerative disc disease of lumbar spine with lumbar radiculopathy symptoms, osteoarthritis bilateral knees, shoulders, hips. Today the patient rates her pain a 5 out of 10. Patient states the pain is in her low back and radiates into her bilateral lower extremities. Patient states this is a throbbing sensation with numbness and tingling in her bilateral lower extremities that is worsened with increased activity. Patient denies any new trauma or injury. Patient denies any change location or type of pain she experiences. Patient does have a history of sciatic issues as well. Patient also states she has frequent muscle cramps in her bilateral calves at night that frequently wake her up and she has to get up and walk around in order to relieve some of the pain. Patient states her pain affects her ability to perform daily activities of living such as light housework and exercise. Patient cannot tolerate standing, and sitting for long periods of time. Patient is managed currently with a intrathecal pain pump of morphine 5 mg/mL at a rate of 0.72 mg/day. Patient also has her PTC device set up to provide morphine 0.055 mg up to 4 times per day. Patient is a home refill patient of [facility]. She is prescribed gabapentin 600 mg 4 times a day. Patient denies any side effects from this medication. Patient states she does not need refills on her gabapentin at this time. Patient does state that she has chronic constipation and has began taking [id number] fiber medication to help. Patient states she has not gotten regulated at this point. Patient states she has also tried MiraLAX. She states these medications do help manage her pain symptoms. She is also using [id number] topicals with minimal improvement. Patient is currently going to physical therapy and this has provided some help as well as continuing to do at home exercising and stretching techniques for longer than 6 weeks however with minimal improvement. Her Nasim is [id number]. It has been reviewed and appropriate. Review of Systems: General: No recent weight changes, no fever, no sleep disturbances Respiratory: No cough, no shortness of air, no recurring pulmonary infections Cardiovascular/peripheral vascular: No chest pain, no palpitations, no edema, no shortness of breath Gastrointestinal: No new onset incontinence, normal bowel movements reported Genitourinary: No new onset incontinence Musculoskeletal: Low back pain, bilateral leg pain Psychiatric: [Normal mood/affect] Neurological: [Denies weakness in extremities], [denies balance issues] Objective:: Physical Exam: General: Alert and oriented x3, no acute distress, pleasant and cooperative Lungs: Respirations even and unlabored, symmetrical chest expansion Eyes: PERRL Musculoskeletal: Flexion and extension of lumbar [spine] somewhat guarded secondary to pain, [antalgic gait noted] Neurological: Speech clear, no gross sensory deficit Assessment:: Degenerative disc disease of lumbar spine with lumbar radiculopathy symptoms, osteoarthritis bilateral knees, shoulder, hip, restless leg syndrome Plan:: Patient is experiencing significant pain in her low back that radiates into her bilateral lower extremities. Patient did have limited range of motion of her lumbar spine during today's visit. Patient has tried and failed oral medications, topicals, heat and ice, physical therapy, at home exercising and stretching for longer than 6 weeks. I have discussed with the patient that she may benefit from a lumbar epidural steroid injection. Risk and benefits were discussed with the patient. She would like to proceed forward with this injection. Patient is not on any blood thinners. I will also order the patient a compounding cream an
== END ==
PROVIDERS: PCP Internal Medicine; Visit Provider Nurse Practitioner Family
DX: M51.16 Intervertebral disc disorders with radiculopathy, lumbar region (principal); M17.0 Bilateral primary osteoarthritis of knee; M16.0 Bilateral primary osteoarthritis of hip; M19.011 Primary osteoarthritis, right shoulder; M19.012 Primary osteoarthritis, left shoulder; G25.81 Restless legs syndrome; Z79.899 Other long term (current) drug therapy
CPT/HCPCS: 99212; G0463

== ENCOUNTER → 2022-09-15 11:37 | Outpatient (POV) | payer MEDICARE, SELFPAY ==
--- NOTE | 2022-09-15 12:47 | EXP.PAIN.SOA ---
[facility] Pain Management SOAP Note Subjective:: This patient is a 72-year-old female we have been treating for quite some time for chronic pain syndrome. Lumbar back pain. Bilateral hip and leg radicular symptoms. We currently manage her with morphine sulfate intrathecal pain pump 5 mg/mL at 0.72 mg today. Patient has had intrathecal pain pump management for 2 years. Patient reports pump is doing very well. She has no complaints or complications regarding the intrathecal pain pump management. However, patient describes low lumbar back pain off the midline bilaterally as well as bilateral posterior hip pain. She has difficulty transitioning from sitting to standing. Patient has difficulty standing for any length of time. Ambulating in a grocery store is impossible due to the bilateral posterior hip pain. Patient requesting an oral narcotic today. Patient states this would help her with her overall pain symptoms described above. I discussed in detail with the patient regarding the risk of oral narcotics while receiving intrathecal pain pump narcotics. I informed the patient we would not do that for her while her pain pump contains narcotic. She understands. Patient also taking gabapentin 600 mg 1 p.o. 4 times daily. Upon examination the patient has extreme point tenderness over the bilateral sacroiliac joints. She has positive Sherita's test bilaterally. Positive Gaenslen's test bilaterally. Positive sacroiliac joint compression test bilaterally. Patient has tried and failed physical therapy within the last year. Patient states she does try home exercise program when she is able. Patient's Nasim report #[id number] is been reviewed and appropriate. Objective:: Patient is awake alert [place] x3. In no acute distress. Flexion-extension lumbar spine very guarded secondary to pain. Deep tendon reflexes upper and lower extremities normal. Motor strength upper and lower extremity normal. There is no gross sensory deficit. Gait is normal Assessment:: Degenerative disc disease lumbar spine multilevels. Lumbar radiculopathy. Lumbar postlaminectomy syndrome. Bilateral sacroiliitis Plan:: Discussed in detail with the patient regarding bilateral sacroiliac joint injections. She wishes to proceed. Risk and benefits were discussed. I answered her questions. [facility] Disclaimer: The information contained in this section may have been updated after the patient was seen, as this information can be updated by other users. Social History Smoking Status: Never smoker alcohol intake: never substance use type: other current occupational status: retired Travel in the last 8 weeks: None household members: none housing: house caffeine: No
[2022-09-15 13:07] VITALS: BP 145/70; PULSE 76; RESP 18; O2SAT 98; BMI 32.3
== END ==
PROVIDERS: Visit Provider Nurse Anesthetist, Certified Registered
DX: M51.16 Intervertebral disc disorders with radiculopathy, lumbar region (principal); M96.1 Postlaminectomy syndrome, not elsewhere classified; M46.1 Sacroiliitis, not elsewhere classified
CPT/HCPCS: 99212; G0463

== ENCOUNTER 2022-09-26 10:01 | Day surgery (SDC) | payer MEDICARE, SELFPAY ==
[2022-09-26 10:18] VITALS: BP 115/82; PULSE 95; RESP 18; TEMP 36.2; O2SAT 92; BMI 32.5
[2022-09-26 10:27] VITALS: BP 132/81; PULSE 87; RESP 18; O2SAT 97
[2022-09-26 10:28] VITALS: BP 132/81; PULSE 87; RESP 18; O2SAT 97
--- NOTE | 2022-09-26 10:29 | P.PCN_ITS ---
Procedure Date: 09/26/22 Time: 10:15 Anesthesiologist:: Brennon Gamboa CRNA Complications:: None Pre-procedure Diagnosis:: Bilateral sacroiliitis. Degenerative disc lumbar spine multilevels. Lumbar radiculopathy. Lumbar postlaminectomy syndrome. Chronic pain syndrome. Post-procedure Diagnosis:: Same. Indications for Procedure:: Patient is a very pleasant 72-year-old female that comes our clinic today for bilateral sacroiliac joint injections. Patient has extreme point tenderness ove r the bilateral sacroiliac joints. She has difficulty ambulating for any distance. She has difficulty transitioning from sitting to standing. She rates her pain 7/10. Patient also being managed with intrathecal pain pump. Pump contains morphine sulfate 5 mg/mL at 0.72 mg/day. Patient reports pump is doing very well. She does not complain of any side effects or complications regarding the intrathecal pain pump management. Procedure Details:: Procedure: Bilateral sacroiliac joint injections under fluoroscopy Informed consent was obtained and the risks and benefits of the procedure were explained to the patient.~ The patient was taken to the procedure room and noninvasive monitors were placed including a noninvasive blood pressure cuff and pulse oximeter.~ The patient was placed prone on the procedure table. Both hips were cleansed using Betadine as a cleansing solution. C-arm fluoroscopy was used to view the right sacroiliac joint.~ The skin and subcutaneous tissues were anesthetized using lidocaine 1.5% and a 25-gauge needle.~ After this, a 22-gauge spinal needle was inserted under fluoroscopic guidance into the inferior aspect of the right sacroiliac joint.~ Omnipaque dye was injected and good spread was seen throughout the joint.~ After this, approximately 5 mL of bupivacaine, 0.25% and Depo-Medrol, 40 mg was incrementally injected into the right sacroiliac joint. We then moved to the left sacroiliac joint.~ The skin and subcutaneous tissues were anesthetized using lidocaine 1.5% and a 25-gauge needle.~ After this, a 22- gauge spinal needle was inserted under fluoroscopic guidance into the inferior aspect of the left sacroiliac joint.~ Omnipaque dye was injected and good spread was seen throughout the joint. After this, approximately 5 mL of bupivacaine, 0.25% and Depo-Medrol, 40 mg was incrementally injected into the left sacroiliac joint.~ The patient tolerated the procedure well with no complications. The patient was observed in the Pain Clinic and then was discharged home neurologically intact. Plan and Disposition:: Patient was reevaluated 10 minutes post procedure. She reports minimal pain in the posterior hip area including the low lumbar area. Transitioning from sitting to standing is much improved. She will follow-up in the clinic for further evaluation.
[2022-09-26 10:30] VITALS: BP 130/79; PULSE 78; RESP 18; O2SAT 92
== END 2022-09-26 10:30 | disposition home or self-care (01) ==
PROVIDERS: PCP Internal Medicine; Visit Provider Nurse Anesthetist, Certified Registered
DX: M46.1 Sacroiliitis, not elsewhere classified (principal); M51.16 Intervertebral disc disorders with radiculopathy, lumbar region; M96.1 Postlaminectomy syndrome, not elsewhere classified; G89.4 Chronic pain syndrome
CPT/HCPCS: 27096; G0260; J1040

== ENCOUNTER → 2022-10-12 14:07 | Outpatient (POV) | payer MEDICARE, SELFPAY ==
[2022-10-12 14:13] VITALS: BP 143/67; PULSE 65; RESP 18; O2SAT 98; BMI 32.3
--- NOTE | 2022-10-12 14:18 | EXP.PAIN.PRO ---
Procedure Date: 10/12/22 Time: 14:18 Anesthesiologist:: Kelley Inman APRN Complications:: None Pre-procedure Diagnosis:: Degenerative disc disease of lumbar spine with lumbar radiculopathy symptoms, lumbar postlaminectomy syndrome, chronic pain, bilateral sacroiliitis Post-procedure Diagnosis:: Same Indications for Procedure:: Patient is a pleasant 72-year-old female who presents today for follow-up of bilateral SI injections on 09/26/2022. We are currently treating the patient for degenerative disc disease of lumbar spine with lumbar radiculopathy symptoms, lumbar postlaminectomy syndrome, chronic pain syndrome, bilateral sacroiliitis. Today she rates her pain a 6 out of 10. Patient states that she had at least 90% improvement following these injections however they only lasted approximately 2 days. Patient states that she has had multiple injections in the past that did provide good relief however they are all typically short-term. Patient does have an intrathecal pain pump with morphine 5 mg/mL with a daily dose of 0.72 mg/day. Patient denies any side effects from this medication. Patient is also managed on gabapentin 600 mg 4 times a day. Patient denies any side effects from this medication. Her Nasim is [id number]. Its been reviewed and is appropriate. Physical Exam: General: Alert and oriented x3, no acute distress, pleasant and cooperative Lungs: Respirations even and unlabored, symmetrical chest expansion Eyes: PERRL Musculoskeletal: Flexion and extension of lumbar [spine] somewhat guarded secondary to pain, [antalgic gait noted] Neurological: Speech clear, no gross sensory deficit Procedure Details:: Informed consent was obtained and the risk and benefits of the procedure were explained to the patient. Patient was taken to the procedure room where noninvasive monitoring was placed including noninvasive blood pressure cuff and pulse oximeter. Patient's pump was interrogated and was reprogrammed to morphine 0.792 mg/day. The patient tolerated the procedure well with no complications. Plan and Disposition:: Patient tolerated her intrathecal pain pump adjustment with no complications and was discharged neurologically intact. Patient will return to clinic in 1 month for reevaluation of symptoms and plan of care. I will refill the patient's gabapentin 600 mg 4 times a day and provide a 3-month supply of this medication. Patient has been instructed to contact the clinic with any concerns before the next appointment. Dr. Silva has reviewed this note and agrees with this plan of care. This note was dictated using voice recognition software and make contain errors or omissions. -- It Is medically necessary for this patient to continue to have their intrathecal pump refilled at regular intervals. This patient had an intrathecal pain pump implanted after meeting criteria of chronic intractable pain for greater than 3 months and failing conservative treatments. Patient has committed and been compliant to the treatment plan and all planned follow up care. Since implantation of the intrathecal pain pump, the patient has had decreased pain and been more functional. Oral medications have been reduced including intake of oral opioids. Patient continues to do well with intrathecal therapy with decrease in pain symptoms and increase in functional status. Stopping intrathecal medications can lead to life threatening withdrawal, seizures, cardiac arrest, severe pain, and possible . Pumps that are not refilled at regular intervals can be damages and cause and need for replacement. We continually titrate dose and concentration to optimize pain relief and function. We are limited in concentration for certain drugs to safely deliver medications through the pump and stay within the recommendations from the Polyanalgesic Consensus Committee Guidelines. Depending on dose and concentration these pumps may need to be refilled sooner than 3 months as we titrate
== END | disposition home or self-care (01) ==
PROVIDERS: PCP Internal Medicine; Visit Provider Nurse Practitioner Family
DX: M51.16 Intervertebral disc disorders with radiculopathy, lumbar region (principal); M96.1 Postlaminectomy syndrome, not elsewhere classified; M46.1 Sacroiliitis, not elsewhere classified; G89.29 Other chronic pain
CPT/HCPCS: 62368; 99212; G0463

== ENCOUNTER → 2023-05-18 11:02 | Outpatient (POV) | payer MEDICARE, SELFPAY ==
--- NOTE | 2023-05-18 11:30 | A.OFFVIS_ITS ---
[facility] Pain Management SOAP Note Subjective:: Patient is a pleasant 72-year-old female who presents today for 6-month follow- up. We are currently treating the patient for degenerative disc disease of lumbar spine with lumbar radiculopathy symptoms, lumbar postlaminectomy syndrome, chronic pain syndrome, bilateral sacroiliitis. Today she rates her pain a 7 out of 10. She states from her last visit she did end up having a fall around September and ultimately broke 3 ribs without realizing. Patient does state that 3 weeks after her fall she ended up being hospitalized for 8 days to rule out possible stroke or heart attack. Patient does state that they did do testing however they still did not definitively say if it was a stroke. Patient does state that her family doctor did say with her history of stroke that they do believe that was what it was. Patient states following this episode she has gone downhill a little and function. Patient states that she has increased trouble with walking and does shake more in her hands. Patient does also states she has been experiencing more episodes of incontinence of both urine and bowels . Patient does have an intrathecal pain pump with morphine 5 mg/mL with a daily dose of 0.79 mg/day. Patient denies any side effects from this medication. She states it does continue to provide good relief for her back. She states that she is had constipation as a chronic issue and that she does go between Senokot, Ex-Lax and mag citrate. Patient states that she was given a sample from her the [facility] care provider on the medication and it did seem like it worked however may be even more than what she needed however she was unable to continue this medication due to the cost. Patient is also managed on gabapentin 600 mg 4 times a day. Patient denies any side effects from this medication. Her Nasim has been reviewed and is appropriate. Physical Exam: General: Alert and oriented x3, no acute distress, pleasant and cooperative Lungs: Respirations even and unlabored, symmetrical chest expansion Eyes: PERRL Musculoskeletal: Flexion and extension of lumbar [spine] somewhat guarded [place] to pain, [antalgic gait noted] Neurological: Speech clear, no gross sensory deficit Objective:: Physical Exam: General: Alert and oriented x3, no acute distress, pleasant and cooperative Lungs: Respirations even and unlabored, symmetrical chest expansion Eyes: PERRL Musculoskeletal: Flexion and extension of lumbar [spine] somewhat guarded se[place] nd[place] to pain, [antalgic gait noted] Neurological: Speech clear, no gross sensory deficit Assessment:: degenerative disc disease of lumbar spine with lumbar radiculopathy symptoms, lumbar postlaminectomy syndrome, chronic pain syndrome, bilateral sacroiliitis Plan:: I will refill the patient's gabapentin 600 mg 4 times a day and provide a 6- month supply of this medication. Patient will return to clinic in 6 months for reevaluation of symptoms and plan of care. Patient has been instructed to contact the clinic with any concerns before the next appointment. Dr. Silva has reviewed this note and agrees with this plan of care. This note was dictated using voice recognition software and make contain errors or omissions. -- It Is medically necessary for this patient to continue to have their intrathecal pump refilled at regular intervals. This patient had an intrathecal pain pump implanted after meeting criteria of chronic intractable pain for greater than 3 months and failing conservative treatments. Patient has committed and been compliant to the treatment plan and all planned follow up care. Since implantation of the intrathecal pain pump, the patient has had decreased pain and been more functional. Oral medications have been reduced including intake of oral opioids. Patient continues to do well with intrathecal therapy with decrease in pain symptoms and increase in functional status. Stopping intrathecal medications can lead to life threatening withdrawal, seizures, cardiac arrest, severe pain, and possible . Pumps that are not refilled at regular intervals can be damages and cause and need for replacement. We continually titrate dose and concentration to optimize pain relief and function. We are limited in concentration for certain drugs to safely deliver medications through the pump and stay within the recommendations from the Polyanalgesic Consensus Committee Guidelines. Depending on dose and concentration these pumps may need to be refilled sooner than 3 months as we titrate. [facility] Disclaimer: The information contained in this section may have been updated after the patient was seen, as this information can be updated by other users. Social History Smoking Status: Never smoker alcohol intake: never substance use type: other current occupational status: retired Travel in the last 8 weeks: None household members: none housing: house caffeine: No
[2023-05-18 12:19] VITALS: BP 149/95; PULSE 89; RESP 18; O2SAT 95; BMI 32.9
== END | disposition home or self-care (01) ==
PROVIDERS: PCP Internal Medicine; Visit Provider Nurse Practitioner Family
DX: M51.16 Intervertebral disc disorders with radiculopathy, lumbar region (principal); M96.1 Postlaminectomy syndrome, not elsewhere classified; G89.4 Chronic pain syndrome; M46.1 Sacroiliitis, not elsewhere classified; Z97.8 Presence of other specified devices
CPT/HCPCS: 99212; G0463

== ENCOUNTER 2023-12-17 13:09 | Outpatient (POV) | payer MEDICARE, SELFPAY ==
[2023-12-17 13:27] VITALS: BP 165/90; PULSE 77; RESP 16; O2SAT 93; BMI 34.5
--- NOTE | 2023-12-17 14:42 | P.PCN_ITS ---
Procedure Date: 12/17/23 Time: 14:21 Anesthesiologist:: Kelley Inman APRN Complications:: None Pre-procedure Diagnosis:: Degenerative disc disease of lumbar spine with lumbar radiculopathy symptoms, lumbar postlaminectomy syndrome, chronic pain syndrome, bilateral sacroiliitis. Post-procedure Diagnosis:: Same Indications for Procedure:: Patient is a pleasant 73-year-old female who presents today for 6-month follow- up. Today she rates her pain a 5 out of 10. Patient denies any new trauma or injury. She does state overall she has been doing well from her last visit. Patient does state she feels like she is still unsteady on her feet from her stroke that she had in 2022. Patient does use a rolling walker to help with ambulation. Patient is also prescribed gabapentin 600 mg 4 times a day and has intrathecal morphine 5 mg/mL with a daily dose of 0.79 mg/day. She denies any side effects from this medication. 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 Her Nasim has been reviewed and is appropriate. Physical Exam: General: Alert and oriented x3, no acute distress, pleasant and cooperative Lungs: Respirations even and unlabored, symmetrical chest expansion Eyes: PERRL Musculoskeletal: Flexion and extension of lumbar [spine] somewhat guarded secondary to pain, [antalgic gait noted] Neurological: Speech clear, no gross sensory deficit Procedure Details:: Informed consent was obtained and the risk and benefits of the procedure were explained to the patient. Patient was taken to the procedure room where noninvasive monitoring was placed including noninvasive blood pressure cuff and pulse oximeter. Patient's pump was interrogated and was reprogrammed to morphine 0.8690 mg/day. The patient tolerated the procedure well with no complications. Plan and Disposition:: Patient tolerated her intrathecal increase with no complications and was discharged neurologically intact. I did licensed mental health counselor the patient that I will send in a 3-month supply of her gabapentin and that due to regulations changing that she is already aware that she will start to come in clinic for her intrathecal refills. Patient is scheduled for 1 at home at the end of this month and we will wait to get a copy of the telemetry to schedule her intrathecal refill date. Patient agrees with this plan of care. We will see the patient back in the clinic at the next intrathecal refill. Patient has been instructed to contact the clinic with any concerns before the next appointment. Dr. Silva has reviewed this note and agrees with this plan of care. This note was dictated using voice recognition software and make contain errors or omissions. -- It Is medically necessary for this patient to continue to have their intrathecal pump refilled at regular intervals. This patient had an intrathecal pain pump implanted after meeting criteria of chronic intractable pain for greater than 3 months and failing conservative treatments. Patient has committed and been compliant to the treatment plan and all planned follow up care. Since implantation of the intrathecal pain pump, the patient has had decreased pain and been more functional. Oral medications have been reduced including intake of oral opioids. Patient continues to do well with intrathecal therapy with decrease in pain symptoms and increase in functional status. Stopping intrathecal medications can lead to life threatening withdrawal, seizures, cardiac arrest, severe pain, and possible . Pumps that are not refilled at regular intervals can be damages and cause and need for replacement. We continually titrate dose and concentration to optimize pain relief and function. We are limited in concentration for certain drugs to safely deliver medications through the pump and stay within the recommendations from the Polyanalgesic Consensus Committee Guidelines. Depending on dose and concentration these pumps may need to be refilled sooner than 3 months as we titrate.
== END 2023-12-17 23:59 | disposition home or self-care (01) ==
PROVIDERS: PCP Internal Medicine; Visit Provider Nurse Practitioner Family
DX: M51.36 Other intervertebral disc degeneration, lumbar region (principal); M96.1 Postlaminectomy syndrome, not elsewhere classified; G89.4 Chronic pain syndrome; M46.1 Sacroiliitis, not elsewhere classified
CPT/HCPCS: 62368; 99212; 99213; G0463

== ENCOUNTER 2024-03-04 12:45 | Day surgery (SDC) | payer MEDICARE, SELFPAY ==
[2024-03-04 13:09] VITALS: BP 128/69; PULSE 79; RESP 16; TEMP 36.6; O2SAT 95; BMI 34.7
[2024-03-04 13:26] VITALS: BP 144/78; PULSE 72; PULSE 73; RESP 18; O2SAT 93
--- NOTE | 2024-03-04 13:38 | EXP.PAIN.PRO ---
Procedure Date: 03/04/24 Time: 13:30 Anesthesiologist:: Brennon Gamboa CRNA Complications:: None Pre-procedure Diagnosis:: Degenerative disc lumbar spine multilevels. Lumbar radiculopathy. Lumbar postlaminectomy syndrome. Chronic pain syndrome. Bilateral sacroiliitis. Post-procedure Diagnosis:: Same. Indications for Procedure:: Patient is a pleasant 73-year-old female who comes our clinic today for intrathecal pain pump interrogation and refill. Patient currently being managed with morphine sulfate 5 mg/mL at 0.8690 mg/day. Patient not reporting any side effects or complications with intrathecal pain pump management. She is not requesting changes. She rates her pain 2/10. Procedure Details:: Details of the procedure explained to the patient. The patient taken procedure room placed in the sitting position. The area of the pump was cleansed using chlorhexidine as a cleansing solution. The pump was interrogated. The pump was accessed with ease using 22-gauge inch and half needle. 5 mL of solution was withdrawn discarded appropriate. The pump was then filled with 20 cc of solution containing morphine sulfate 5 mg/mL. Pump rate will remain the same. 0.8690 mg/day. Patient tolerated procedure without difficulty. There are no complications. Plan and Disposition:: Patient was discharged without incident.
[2024-03-04 13:56] VITALS: BP 126/79; PULSE 78; RESP 16; O2SAT 96
== END 2024-03-04 13:56 | disposition home or self-care (01) ==
PROVIDERS: PCP Internal Medicine; Visit Provider Nurse Anesthetist, Certified Registered
DX: M51.16 Intervertebral disc disorders with radiculopathy, lumbar region (principal); M96.1 Postlaminectomy syndrome, not elsewhere classified; G89.4 Chronic pain syndrome; M46.1 Sacroiliitis, not elsewhere classified
CPT/HCPCS: 95991

== ENCOUNTER 2024-08-15 13:23 | Day surgery (SDC) | payer MEDICARE, SELFPAY ==
--- NOTE | 2024-08-15 13:42 | P.HP_ITS ---
History of Present Illness *Admission Date: 08/15/24 *Reason for visit:: Intrathecal refill; DDD *History of present illness: Degenerative disc disease [facility] Disclaimer: The information contained in this section may have been updated after the patient was seen, as this information can be updated by other users. Social History Smoking Status: Never smoker alcohol intake: never substance use type: other current occupational status: unemployed Travel in the last 8 weeks: None household members: none housing: house caffeine: No Have you lived/traveled outside US in past 30 days?: No Contact w/someone who lives/traveled outside US past 30 days?: No Exposure to someone with infectious disease in past 14 days?: No Do you have a fever (greater than 100.4 F or 38 C)?: No Have you tested positive for COVID-19: No Exposed to someone with COVID-19 in past 14 days?: No Do you have a sore throat?: No Do you have a cough?: No Do you have any weakness?: No Do you have any diarrhea?: No Are you experiencing any unusual bleeding?: No Do you have any muscle aches/pain?: No Do you have any abdominal pain?: No Are you experiencing loss of taste or smell?: No Other Medical History Have you received the Flu Vaccine for this season: No Have you received the Pneumonia Vaccine: No Review of Systems Review of Systems Review of systems:: pertinent systems reviewed and negative unless documented below Review of systems (narrative): Review of Systems: General: No recent weight changes, no fever, no sleep disturbances Respiratory: No cough, no shortness of air, no recurring pulmonary infections Cardiovascular/peripheral vascular: No chest pain, no palpitations, no edema, no shortness of breath Gastrointestinal: No new onset incontinence, normal bowel movements reported Genitourinary: No new onset incontinence Musculoskeletal: Chronic back pain Psychiatric: [Normal mood/affect] Neurological: [Denies weakness in extremities], [denies balance issues] Constitutional Constitutional: Reports system reviewed and no additional complaints, except as documented Meds Home Medications and Allergies Home Medications ?Medication ?Instructions ?Recorded ?Confirmed ?Type cyclobenzaprine 10 mg tablet 10 mg PO TID PRN Muscle Spasm 12/22/20 08/15/24 History cyclosporine 0.05 % eye drops in a 1 each OP BID dry eyes 12/22/20 08/15/24 History dropperette esomeprazole magnesium 40 mg 40 mg PO DAILY GERD 12/22/20 08/15/24 History capsule,delayed release hydrocodone 10 mg-acetaminophen 1 tab PO TIDP PRN chronic pain 12/22/20 08/15/24 History 325 mg tablet levothyroxine 75 mcg tablet 75 mcg PO DAILY hypothyroid 12/22/20 08/15/24 History metoprolol succinate 25 mg 25 mg PO DAILY blood pressure 12/22/20 08/15/24 History tablet,extended release 24 hr oxybutynin chloride 5 mg tablet 5 mg PO BID . 12/22/20 08/15/24 History ondansetron 4 mg disintegrating 4 mg PO TIDP PRN Nausea #90 tabs 01/25/21 08/15/24 Rx tablet gabapentin 600 mg tablet 600 mg PO QID #120 tabs 02/01/23 08/15/24 Rx gabapentin 600 mg tablet See Rx Instructions .Route 07/02/24 08/15/24 Rx .COMPLEX #120 tabs New Prescriptions to Start Prescriptions: Allergies Allergy/AdvReac Type Severity Reaction Status Date / Time erythromycin base Allergy Nausea Verified 09/26/22 10:19 oxycodone AdvReac Hallucinati Verified 09/26/22 10:19 ng Exam Constitutional Constitutional: no acute distress *Routine HEENT Exam Head: Present normocephalic and atraumatic Eye: Present PERRL ENT: Present mucous membranes moist *Routine Neck Exam Neck: Present supple *Routine Respiratory Exam Respiratory: Present CTA bilaterally *Routine Cardiovascular Exam Cardiovascular: Present RRR *Routine Abdominal Exam Abdominal: Present soft *Routine Rectal Exam Rectal:: deferred *Routine Genitalia Exam Genitalia:: normal female Routine Back/Spine/Pelvis Exam Back/Spine: Present pain with flexion *Routine Skin Exam Skin: Present intact and warm *Routine Neurological Exam Neurological: Present alert and oriented X3 Routine Psychiatric Exam Psychiatric: Present normal affect Assessment and Plan *Assessment and plan (1) Lumbar radiculopathy: Status: Chronic Category: Medical Code(s): M54.16 - Radiculopathy, lumbar region (2) Degenerative joint disease (DJD) of lumbar spine: Status: Chronic Category: Medical Code(s): M47.816 - Spondylosis without myelopathy or radiculopathy, lumbar region (3) Low back pain: Status: Chronic Category: Medical Code(s): M54.50 - Low back pain, unspecified (4) Right hip pain: Status: Chronic Category: Medical Code(s): M25.551 - Pain in right hip Plan Patient has been instructed to contact the clinic with any concerns before the next appointment. Dr. Silva has reviewed this note and agrees with this plan of care. This note was dictated using voice recognition software and make contain errors or omissions. All injections are used with Lidocaine, Bupivacaine and dexamethasone. Occasionally urine drug screen is needed to verify patient's compliance with our office pain contract. This is ordered based off specific treatments related to chronic pain with the potential to abuse certain medications.
[2024-08-15 13:43] VITALS: BP 129/71; PULSE 64; RESP 16; TEMP 37.1; O2SAT 93; BMI 35.2
--- NOTE | 2024-08-15 13:44 | EXP.PAIN.PRO ---
Procedure Date: 08/15/24 Time: 14:13 Anesthesiologist:: Kelley Inman APRN Complications:: None Pre-procedure Diagnosis:: Degenerative disc disease of lumbar spine with lumbar radiculopathy symptoms, chronic pain syndrome, right hip pain, sacroiliitis Post-procedure Diagnosis:: Same Indications for Procedure:: Patient is a pleasant 73-year-old female who presents today for intrathecal refill and reprogram. Today she rates her pain an 8 out of 10. She denies any new falls or injuries. She states she is having a whole lot more pain along her right hip. She describes it as a constant aching sensation that is worse with prolonged positioning or increased activity. Patient does state the pain is interfering with her ability perform activities of daily living such as cooking and cleaning and is interested in any help we may be able to do in regards to that pain. She is currently managed with morphine 5 mg/mL with a daily dose of 0.869 mg/day. She denies any side effects. Her Nasim has been reviewed and is appropriate. Physical Exam: General: Alert and oriented x3, no acute distress, pleasant and cooperative Lungs: Respirations even and unlabored, symmetrical chest expansion Eyes: PERRL Musculoskeletal: Flexion and extension of lumbar [spine] somewhat guarded secondary to pain, [antalgic gait noted] point tenderness along right SI with positive right Sherita's, Oliver's, Gaenslen's, compression and distraction exam Neurological: Speech clear, no gross sensory deficit Procedure Details:: Informed consent was obtained and the risk and benefits of the procedure were explained to the patient. The patient had noninvasive monitoring placed including noninvasive blood pressure cuff and pulse oximeter. Patient's pump was interrogated. The area over the pump was cleansed with chlorhexidine as a cleansing solution. In sterile fashion the pump was accessed with a 22-gauge needle. Approximately 6.4 mls of the pump solution was removed and discarded appropriately. The pump was then refilled with 20 mL's of morphine 5 mg/mL. The needle was withdrawn and a bandage was placed over the puncture site. The infusion rate was reprogrammed and continued at its current dosage. The patient tolerated well with no complication. Plan and Disposition:: Patient tolerated the procedure well with no complications and was discharged neurologically intact. Patient is experiencing worsening pain along the low back and right hip. They did have limited range of motion of the lumbar spine along with point tenderness along right SI joints and a positive right Sherita's, Oliver's, Gaenslen's, compression and distraction exam. I did discuss with the patient that I do believe they would benefit from right SI injections. Risk and benefits were discussed with the patient and they would like to proceed forward with this option. Patient has tried and failed conservative therapy including continued at home stretching exercise for longer than 12 weeks. Patient has had right hip pain for longer than 6 months. This will be a diagnostic SI injection with less than 1 mL of solution to be injected. If she does get significant relief we will plan on repeating this injection in future when the pain returns with the possibility of an SI fusion at a later date. Patient will be scheduled for right SI injections under fluoroscopy. Patient will also be given a pump refill date. Patient has been instructed to contact the clinic with any concerns before the next appointment. Dr. Silva has reviewed this note and agrees with this plan of care. This note was dictated using voice recognition software and make contain errors or omissions. All injections are used with Lidocaine or Bupivacaine and dexamethasone. Patient will return to clinic on or before their next intrathecal refill date. We will see the patient back in the clinic at the next intrathecal refill. Patient has been instructed to contact the clinic with any concerns before the next appointment. Dr. Silva has reviewed this note and agrees with this plan of care. This note was dictated using voice recognition software and make contain errors or omissions. -- It Is medically necessary for this patient to continue to have their intrathecal pump refilled at regular intervals. This patient had an intrathecal pain pump implanted after meeting criteria of chronic intractable pain for greater than 3 months and failing conservative treatments. Patient has committed and been compliant to the treatment plan and all planned follow up care. Since implantation of the intrathecal pain pump, the patient has had decreased pain and been more functional. Oral medications have been reduced including intake of oral opioids. Patient continues to do well with intrathecal therapy with decrease in pain symptoms and increase in functional status. Stopping intrathecal medications can lead to life threatening withdrawal, seizures, cardiac arrest, severe pain, and possible . Pumps that are not refilled at regular intervals can be damages and cause and need for replacement. We continually titrate dose and concentration to optimize pain relief and function. We are limited in concentration for certain drugs to safely deliver medications through the pump and stay within the recommendations from the Polyanalgesic Consensus Committee Guidelines. Depending on dose and concentration these pumps may need to be refilled sooner than 3 months as we titrate. A UDS is needed to verify patient's compliance with our office pain contract. This is ordered based off specific treatments related to chronic pain with the potential to abuse certain medications.
[2024-08-15 14:03] VITALS: BP 125/65; PULSE 66; RESP 18; O2SAT 95
[2024-08-15 14:19] VITALS: BP 122/61; PULSE 65; RESP 16; O2SAT 92
== END 2024-08-15 14:19 | disposition home or self-care (01) ==
PROVIDERS: Visit Provider Nurse Practitioner Family
DX: M51.16 Intervertebral disc disorders with radiculopathy, lumbar region (principal); M25.551 Pain in right hip; G89.4 Chronic pain syndrome; M46.1 Sacroiliitis, not elsewhere classified
CPT/HCPCS: 62370; 99212; 99221; G0463

== ENCOUNTER 2024-09-30 14:15 | Day surgery (SDC) | payer MEDICARE, SELFPAY ==
[2024-09-30 14:29] VITALS: BP 168/63; PULSE 89; RESP 16; O2SAT 92; BMI 35.2
[2024-09-30] MEDS: BUPIVACAINE 0.25% 10ML INJ 25 MG IJ (14:41)
[2024-09-30] MEDS: DEXAMETHASONE 10MG/ML 1ML VIAL 10 MG (14:41)
[2024-09-30 14:42] VITALS: BP 126/70; PULSE 83; RESP 18; O2SAT 96
[2024-09-30] MEDS: LIDOCAINE 1% 5ML PF VIAL 5 ML (14:42)
[2024-09-30 14:44] VITALS: BP 126/70; PULSE 80; RESP 18; O2SAT 97
--- NOTE | 2024-09-30 14:45 | P.PCN_ITS ---
Procedure Date: 09/30/24 Time: 14:45 Anesthesiologist:: Brennon Gamboa CRNA Complications:: None Pre-procedure Diagnosis:: Right sacroiliitis. Degenerative disc lumbar spine multilevels. Lumbar radiculopathy. Lumbar postlaminectomy syndrome. Lumbar spondylosis. Post-procedure Diagnosis:: Same. Indications for Procedure:: Patient is very pleasant 74-year-old female comes our clinic today for right sacroiliac joint injection cortisone local anesthetic. Patient describes low lumbar back pain specifically off the midline to the right. Right posterior hip pain. She is having difficulty with ambulation using a walker for stability due to the right posterior hip pain. She rates her pain 7/10. Procedure Details:: Procedure: Right sacroliliac joint injection under fluoroscopy Informed consent was obtained and the risk and benefits of the procedure were explained to the patient.~ The patient was taken to the procedure room and noninvasive monitors were placed including noninvasive blood pressure cuff and pulse oximeter.~ The patient was placed prone on the procedure table.~ The~ right hip was cleansed using Betadine as a cleansing solution.~ C-arm fluorosocpy was used to view the right SI joint.~ The skin and subcutaneous tis sues were anesthetized using Lidocaine 1.5% and a 25-gauge needle.~ After this, a 22-gauge spinal needle was inserted under fluoroscopic guidance into the inferior aspect of the right SI joint.~ Omnipaque dye was injected and a good spread was seen throughout the joint.~ After this, approximately 5 mL of bupivacaine 0.25% and Depo-Medrol 40 mg was incrementally injected into the sacroiliac joint.~ The patient tolerated the procedure well with no complications.~ The patient was observed in the Pain Clinic, then discharged home neurologically intact.~ Plan and Disposition:: Patient was discharged without incident.
[2024-09-30 14:46] VITALS: BP 125/80; PULSE 80; RESP 18; O2SAT 97
== END 2024-09-30 14:46 | disposition home or self-care (01) ==
PROVIDERS: Visit Provider Nurse Anesthetist, Certified Registered
DX: M46.1 Sacroiliitis, not elsewhere classified (principal); M51.16 Intervertebral disc disorders with radiculopathy, lumbar region; M47.26 Other spondylosis with radiculopathy, lumbar region; M96.1 Postlaminectomy syndrome, not elsewhere classified; I10 Essential (primary) hypertension; E03.9 Hypothyroidism, unspecified; K21.9 Gastro-esophageal reflux disease without esophagitis; Z88.1 Allergy status to other antibiotic agents; Z88.5 Allergy status to narcotic agent; Z79.899 Other long term (current) drug therapy; Z79.890 Hormone replacement therapy; Z97.8 Presence of other specified devices
CPT/HCPCS: G0260; J0665; J1100; J2003

== ENCOUNTER 2024-10-17 14:10 | Day surgery (SDC) | payer MEDICARE, SELFPAY ==
[2024-10-17 14:20] VITALS: BP 132/84; PULSE 85; RESP 16; O2SAT 92; BMI 35.2
--- NOTE | 2024-10-17 14:31 | P.HP_ITS ---
History of Present Illness *Admission Date: 10/17/24 *Reason for visit:: Intrathecal refill; DDD *History of present illness: Same [facility] Disclaimer: The information contained in this section may have been updated after the patient was seen, as this information can be updated by other users. Social History Smoking Status: Never smoker alcohol intake: never substance use type: other current occupational status: unemployed Travel in the last 8 weeks?: None household members: none housing: house caffeine: No Have you lived/traveled outside [place] in past 30 days?: No Contact w/someone who lives/traveled outside US past 30 days?: No Exposure to someone with infectious disease in past 14 days?: No Do you have a fever (greater than 100.4 F or 38 C)?: No Have you tested positive for COVID-19?: No Exposed to someone with COVID-19 in past 14 days?: No Do you have a sore throat?: No Do you have a cough?: No Do you have any weakness?: No Do you have any diarrhea?: No Are you experiencing any unusual bleeding?: No Do you have any muscle aches/pain?: No Do you have any abdominal pain?: No Are you experiencing loss of taste or smell?: No Other Medical History Have you received the Flu Vaccine for this season: No Have you received the Pneumonia Vaccine: No Review of Systems Review of Systems Review of systems:: pertinent systems reviewed and negative unless documented below Review of systems (narrative): Review of Systems: General: No recent weight changes, no fever, no sleep disturbances Respiratory: No cough, no shortness of air, no recurring pulmonary infections Cardiovascular/peripheral vascular: No chest pain, no palpitations, no edema, no shortness of breath Gastrointestinal: No new onset incontinence, normal bowel movements reported Genitourinary: No new onset incontinence Musculoskeletal: Chronic back pain Psychiatric: [Normal mood/affect] Neurological: [Denies weakness in extremities], [denies balance issues] Meds Home Medications and Allergies Home Medications ?Medication ?Instructions ?Recorded ?Confirmed ?Type cyclobenzaprine 10 mg tablet 10 mg PO TID PRN Muscle S pasm 12/22/20 10/17/24 History cyclosporine 0.05 % eye drops in a 1 each OP BID dry e yes 12/22/20 10/17/24 H istory dropperette esomeprazole magnesium 40 mg 40 mg PO DAILY GERD 12/2210/17/24 History capsule,delayed release hydrocodone 10 mg-acetaminophen 1 tab PO TIDP 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 12/22/20 10/17/24 History ondansetron 4 mg disintegrating 4 mg PO TIDP PRN Nause a #90 tabs 01/25/21 10/17/24 Rx tablet gabapentin 600 mg tablet See Rx Instructions .Route 0 07/02/24 10/17/24 Rx .COMPLEX #120 tabs gabapentin 600 mg tablet 600 mg PO QID #120 tabs 10/1510/17/24 Rx New Prescriptions to Start Prescriptions: Allergies Allergy/AdvReac Type Severity Reaction Status Date / Time erythromycin base Allergy Nausea Verified 09/26/22 10:19 oxycodone AdvReac Hallucinati Verified 09/26/22 10:19 ng Exam Data for Last 24 hours Vital signs and Labs for Last 24 Hours: Pulse Resp BP Pulse Ox O2 Del Method 85 16 132/84 92 L Room Air 10/17/24 14:20 10/17/24 14:20 10/17/24 14:20 10/17/24 14:20 10/17/24 14:20 I & O for Last 24 hours: Intake & Output 10/14/24 10/15/24 10/16/24 10/17/24 23:59 23:59 23:59 23:59 Weight 180 lb Constitutional Constitutional: no acute distress *Routine HEENT Exam Head: Present normocephalic and atraumatic Eye: Present PERRL ENT: Present mucous membranes moist *Routine Neck Exam Neck: Present supple *Routine Respiratory Exam Respiratory: Present CTA bilaterally *Routine Cardiovascular Exam Cardiovascular: Present RRR *Routine Abdominal Exam Abdominal: Present soft *Routine Rectal Exam Rectal:: deferred *Routine Genitalia Exam Genitalia:: deferred Routine Back/Spine/Pelvis Exam Back/Spine: Present pain with flexion *Routine Skin Exam Skin: Present intact and warm *Routine Neurological Exam Neurological: Present alert and oriented X3 Routine Psychiatric Exam Psychiatric: Present normal affect and normal thought process Assessment and Plan *Assessment and plan (1) Degenerative joint disease (DJD) of lumbar spine: Status: Chronic Category: Medical Code(s): M47.816 - Spondylosis without myelopathy or radiculopathy, lumbar region (2) Lumbar radiculopathy: Status: Chronic Category: Medical Code(s): M54.16 - Radiculopathy, lumbar region Plan Patient has been instructed to contact the clinic with any concerns before the next appointment. Dr. Silva has reviewed this note and agrees with this plan of care. This note was dictated using voice recognition software and make contain errors or omissions. All injections are used with Lidocaine, Bupivacaine and dexamethasone. Occasionally urine drug screen is needed to verify patient's compliance with our office pain contract. This is ordered based off specific treatments related to chronic pain with the potential to abuse certain medications.
--- NOTE | 2024-10-17 14:33 | P.PCN_ITS ---
Procedure Date: 10/17/24 Time: 14:56 Anesthesiologist:: Kelley Inman APRN Complications:: None Pre-procedure Diagnosis:: Degenerative disc disease of lumbar spine with lumbar radiculopathy symptoms Post-procedure Diagnosis:: Same Indications for Procedure:: Patient is a pleasant 74-year-old female who presents today for intrathecal refill and reprogram. Today she rates her pain a 8 out of 10. She denies any new falls or injuries. She does state that she did end up having the right SI injection that we ordered at her last visit and that this did really help. She rated 90% improvement the day of this injection. She states that it did slowly start to ease down to more about 70% and really felt like it worked for a solid week. Patient does still state that she feels like it is not as severe and does not feel like she is having the sensation of sitting on rocks like previously. Patient denies any other changes. Patient is currently managed with morphine 5 mg/mL with a daily dose of 0.869 mg/day. She denies any side effects. She is asking if we could go up a little bit on the dosage. She is prescribed gabapentin 600 mg 4 times a day from our office. She denies any side effects from that medication as well.Her Nasim has been reviewed and is appropriate. Physical Exam: General: Alert and oriented x3, no acute distress, pleasant and cooperative Lungs: Respirations even and unlabored, symmetrical chest expansion Eyes: PERRL Musculoskeletal: Flexion and extension of lumbar [spine] somewhat guarded secondary to pain, [antalgic gait noted] Neurological: Speech clear, no gross sensory deficit Procedure Details:: Informed consent was obtained and the risk and benefits of the procedure were explained to the patient. The patient had noninvasive monitoring placed including noninvasive blood pressure cuff and pulse oximeter. Patient's pump was interrogated. The area over the pump was cleansed with chlorhexidine as a cleansing solution. In sterile fashion the pump was accessed with a 22-gauge needle. Approximately 8.6 mls of the pump solution was removed and discarded appropriately. The pump was then refilled with 20 mL's of morphine 5 mg/mL. The needle was withdrawn and a bandage was placed over the puncture site. The infusion rate was reprogrammed and increased 10% to morphine 0.9559 mg/day. The patient tolerated well with no complication. Plan and Disposition:: Patient tolerated the procedure well with no complications and was discharged neurologically intact. I will make sure that she does have refills on her gabapentin. Patient will return to clinic on or before their next intrathecal refill date. We will see the patient back in the clinic at the next intrathecal refill. Patient has been instructed to contact the clinic with any concerns before the next appointment. Dr. Silva has reviewed this note and agrees with this plan of care. This note was dictated using voice recognition software and make contain errors or omissions. -- It Is medically necessary for this patient to continue to have their intrathecal pump refilled at regular intervals. This patient had an intrathecal pain pump implanted after meeting criteria of chronic intractable pain for greater than 3 months and failing conservative treatments. Patient has committed and been compliant to the treatment plan and all planned follow up care. Since implantat ion of the intrathecal pain pump, the patient has had decreased pain and been more functional. Oral medications have been reduced including intake of oral opioids. Patient continues to do well with intrathecal therapy with decrease in pain symptoms and increase in functional status. Stopping intrathecal medications can lead to life threatening withdrawal, seizures, cardiac arrest, severe pain, and possible . Pumps that are not refilled at regular intervals can be damages and cause and need for replacement. We continually titrate dose and concentration to optimize pain relief and function. We are limited in concentration for certain drugs to safely deliver medications through the pump and stay within the recommendations from the Polyanalgesic Consensus Committee Guidelines. Depending on dose and concentration these pumps may need to be refilled sooner than 3 months as we titrate. A UDS is needed to verify patient's compliance with our office pain contract. This is ordered based off specific treatments related to chronic pain with the potential to abuse certain medications.
[2024-10-17 14:49] VITALS: BP 132/72; PULSE 84; RESP 18; O2SAT 90
[2024-10-17 15:01] VITALS: BP 115/83; PULSE 78; RESP 18; O2SAT 96
== END 2024-10-17 15:01 | disposition home or self-care (01) ==
PROVIDERS: Visit Provider Nurse Practitioner Family
DX: Z45.1 Encounter for adjustment and management of infusion pump (principal); M51.16 Intervertebral disc disorders with radiculopathy, lumbar region; Z88.5 Allergy status to narcotic agent; Z79.890 Hormone replacement therapy; Z79.899 Other long term (current) drug therapy
CPT/HCPCS: 95991

== ENCOUNTER 2024-12-12 10:36 | Day surgery (SDC) | payer MEDICARE, SELFPAY ==
--- NOTE | 2024-12-12 10:46 | P.HP_ITS ---
History of Present Illness *Admission Date: 12/12/24 *Reason for visit:: Intrathecal refill; DDD *History of present illness: Same [facility] Disclaimer: The information contained in this section may have been updated after the patient was seen, as this information can be updated by other users. Social History Smoking Status: Never smoker alcohol intake: never substance use type: other current occupational status: unemployed Travel in the last 8 weeks?: None household members: none housing: house caffeine: No Have you lived/traveled outside [place] in past 30 days?: No Contact w/someone who lives/traveled outside [place] past 30 days?: No Exposure to someone with infectious disease in past 14 days?: No Do you have a fever (greater than 100.4 F or 38 C)?: No Have you tested positive for COVID-19?: No Exposed to someone with COVID-19 in past 14 days?: No Do you have a sore throat?: No Do you have a cough?: No Do you have any weakness?: No Do you have any diarrhea?: No Are you experiencing any unusual bleeding?: No Do you have any muscle aches/pain?: No Do you have any abdominal pain?: No Are you experiencing loss of taste or smell?: No Other Medical History Have you received the Flu Vaccine for this season: No Have you received the Pneumonia Vaccine: No Meds Home Medications and Allergies Home Medications ?Medication ?Instructions ?Recorded ?Confirmed ?Type cyclobenzaprine 10 mg tablet 10 mg PO TID PRN Muscle S pasm 12/22/20 10/17/24 History cyclosporine 0.05 % eye drops in a 1 each OP BID dry e yes 12/22/20 10/17/24 H istory dropperette esomeprazole magnesium 40 mg 40 mg PO DAILY GERD 12/2210/17/24 History capsule,delayed release hydrocodone 10 mg-acetaminophen 1 tab PO TIDP PRN chronic care nurse veena pain 12/22/20 10/17/24 History 325 mg tablet levothyroxine 75 mcg tablet 75 mcg PO DAILY hypothyroi d 12/22/20 10/17/24 History metoprolol succinate 25 mg 25 mg PO DAILY blood pressu re 12/22/20 10/17/24 History tablet,extended release 24 hr oxybutynin chloride 5 mg tablet 5 mg PO BID . 12/22/20 10/17/24 History ondansetron 4 mg disintegrating 4 mg PO TIDP PRN Nause a #90 tabs 01/25/21 10/17/24 Rx tablet gabapentin 600 mg tablet See Rx Instructions .Route 0 07/02/24 10/17/24 Rx .COMPLEX #120 tabs gabapentin 600 mg tablet 600 mg PO QID #120 tabs 10/1510/17/24 Rx New Prescriptions to Start Prescriptions: Allergies Allergy/AdvReac Type Severity Reaction Status Date / Time erythromycin base Allergy Nausea Verified 09/26/22 10:19 oxycodone AdvReac Hallucinati Verified 09/26/22 10:19 ng Exam *Routine HEENT Exam Head: Present normocephalic and atraumatic Eye: Present PERRL ENT: Present mucous membranes moist *Routine Neck Exam Neck: Present supple *Routine Respiratory Exam Respiratory: Present CTA bilaterally *Routine Cardiovascular Exam Cardiovascular: Present RRR *Routine Abdominal Exam Abdominal: Present soft *Routine Rectal Exam Rectal:: deferred *Routine Genitalia Exam Genitalia:: deferred Routine Back/Spine/Pelvis Exam Back/Spine: Present pain with flexion *Routine Skin Exam Skin: Present intact and warm *Routine Neurological Exam Neurological: Present alert and oriented X3
--- NOTE | 2024-12-12 10:47 | EXP.PAIN.PRO ---
Procedure Date: 12/12/24 Time: 11:22 Anesthesiologist:: Kelley Inman APRN Complications:: None Pre-procedure Diagnosis:: Degenerative disc disease lumbar spine with lumbar radiculopathy symptoms Post-procedure Diagnosis:: Same Indications for Procedure:: Patient is a pleasant 74-year-old female who presents today for intrathecal refill and reprogram. Patient rates her pain today a 9 out of 10. Patient states this is all more related to her legs and denies any issues with her pump. Patient did have an incident where she ended up falling back on her pump and that it did beat for a little while however she gave herself a bolus shortly after and it seemed to be working just fine. Patient is asking if we can go up a little on her pump. She is currently managed with morphine 5 mg/mL with a daily dose of 0.9559 mg/day. Patient is also prescribed gabapentin 600 mg from our office 4 times a day. Her Nasim has been reviewed and is appropriate. Physical Exam: General: Alert and oriented x3, no acute distress, pleasant and cooperative Lungs: Respirations even and unlabored, symmetrical chest expansion Eyes: PERRL Musculoskeletal: Flexion and extension of lumbar [spine] somewhat guarded secondary to pain, [antalgic gait noted] Neurological: Speech clear, no gross sensory deficit Procedure Details:: Informed consent was obtained and the risk and benefits of the procedure were explained to the patient. The patient had noninvasive monitoring placed including noninvasive blood pressure cuff and pulse oximeter. Patient's pump was interrogated. The area over the pump was cleansed with chlorhexidine as a cleansing solution. In sterile fashion the pump was accessed with a 22-gauge needle. Approximately 9 mls of the pump solution was removed and discarded appropriately. The pump was then refilled with 20 mL's of morphine 5 mg/mL. The needle was withdrawn and a bandage was placed over the puncture site. The infusion rate was reprogrammed and increased 10% to morphine 1.0514 mg/day. The patient tolerated well with no complication. Plan and Disposition:: Patient tolerated the procedure well with no complications and was discharged neurologically intact. I did also refill her gabapentin and provide a 3-month supply of this medication. Patient will return to clinic on or before their next intrathecal refill date. We will see the patient back in the clinic at the next intrathecal refill. Patient has been instructed to contact the clinic with any concerns before the next appointment. Dr. Silva has reviewed this note and agrees with this plan of care. This note was dictated using voice recognition software and make contain errors or omissions. -- It Is medically necessary for this patient to continue to have their intrathecal pump refilled at regular intervals. This patient had an intrathecal pain pump implanted after meeting criteria of chronic intractable pain for greater than 3 months and failing conservative treatments. Patient has committed and been compliant to the treatment plan and all planned follow up care. Since implantation of the intrathecal pain pump, the patient has had decreased pain and been more functional. Oral medications have been reduced including intake of oral opioids. Patient continues to do well with intrathecal therapy with decrease in pain symptoms and increase in functional status. Stopping intrathecal medications can lead to life threatening withdrawal, seizures, cardiac arrest, severe pain, and possible . Pumps that are not refilled at regular intervals can be damages and cause and need for replacement. We continually titrate dose and concentration to optimize pain relief and function. We are limited in concentration for certain drugs to safely deliver medications through the pump and stay within the recommendations from the Polyanalges[employer] Consensus Committee Guidelines. Depending on dose and concentration these pumps may need to be refilled sooner than 3 months as we titrate. A UDS is needed to verify patient's compliance with our office pain contract. This is ordered based off specific treatments related to chronic pain with the potential to abuse certain medications.
[2024-12-12 11:00] VITALS: BP 132/81; PULSE 83; RESP 18; O2SAT 94; BMI 35.2
[2024-12-12 11:29] VITALS: BP 134/77; PULSE 69; RESP 18; O2SAT 95
[2024-12-12 11:35] VITALS: BP 149/86; PULSE 75; RESP 18; O2SAT 91
== END 2024-12-12 11:29 | disposition home or self-care (01) ==
PROVIDERS: PCP Family Medicine; Visit Provider Nurse Practitioner Family
DX: M51.16 Intervertebral disc disorders with radiculopathy, lumbar region (principal); Z45.1 Encounter for adjustment and management of infusion pump; Z88.5 Allergy status to narcotic agent; Z88.1 Allergy status to other antibiotic agents; Z79.899 Other long term (current) drug therapy
CPT/HCPCS: 62370